=== PATIENT | female | born 1950 | race Caucasian/White ===

== ENCOUNTER 2018-01-22 08:08 | Outpatient (CLI) | payer MEDICARE, OTHER, SELFPAY ==
[2018-01-22 09:43] LABS: Anion Gap 8.4 mmol/L (3-11); BUN 12 mg/dL (7-18); CO2 29.6 mmol/L (21.0-32.0); CREATININE 0.97 mg/dL (0.55-1.02); Calcium 8.5 mg/dL (8.5-10.1); Chloride 105 mmol/L (98-107); Cholesterol 263 mg/dL (50-200); Estimated GFR 57.11 (mL/min/1.73m2); Glucose 85 mg/dL (70-100); HDL Cholesterol 83 mg/dL (40-60); LDL CHOLESTEROL 150 mg/dL (<100); Potassium 4.1 mmol/L (3.5-5.1); Sodium 143 mmol/L (136-145); Triglyceride 167 mg/dL (30-150)
== END 2018-01-22 08:28 ==
PROVIDERS: PCP Family Medicine; Visit Provider Family Medicine
DX: I10 Essential (primary) hypertension (principal)
CPT/HCPCS: 36415; 80048; 80061; 83721

== ENCOUNTER → 2018-02-21 14:15 | Outpatient (BNVA) | payer MEDICARE, OTHER, SELFPAY | PROVIDERS: PCP Family Medicine; Visit Provider Internal Medicine Cardiovascular Disease | DX: I48.0 Paroxysmal atrial fibrillation (principal); I10 Essential (primary) hypertension; Z79.01 Long term (current) use of anticoagulants; Z79.899 Other long term (current) drug therapy; E78.2 Mixed hyperlipidemia | CPT/HCPCS: 99214 ==

== ENCOUNTER 2018-02-21 15:01 | Outpatient (CLI) | payer MEDICARE, OTHER, SELFPAY | END 2018-02-21 15:21 | PROVIDERS: PCP Family Medicine; Visit Provider Internal Medicine Cardiovascular Disease | DX: I10 Essential (primary) hypertension (principal); I48.0 Paroxysmal atrial fibrillation; Z79.01 Long term (current) use of anticoagulants; Z79.899 Other long term (current) drug therapy | CPT/HCPCS: 99214 ==

== ENCOUNTER 2018-06-28 00:16 | Outpatient (CLI) | payer MEDICARE, OTHER, SELFPAY ==
--- NOTE | 2018-06-28 09:02 | DI.MAMMO_ITS ---
SYMPTOM/DIAGNOSIS: SCREENING, Z12.39 MAMMOGRAMS: Mammograms were interpreted according to the usual protocol including computer analysis with CAD system, tomosynthesis and C view imaging. The breasts are heterogeneously dense. Comparison is made with previous examinations including 06/2016 and there has been no gross interval change in appearance in comparison with previous studies. CONCLUSION: No specific evidence of malignancy at this time. Routine screening examinations are suggested at yearly intervals due to the family history of breast carcinoma. Category 1. Breast density, category C. MQSA ASSESSMENT OF FINDINGS: Negative. Category 1. Patient will receive a letter notifying them of these results. Bi-RADS category C. The breasts are heterogeneously dense, which may obscure small masses.
== END 2018-06-28 00:36 ==
PROVIDERS: PCP Family Medicine; Visit Provider Family Medicine
DX: Z12.31 Encounter for screening mammogram for malignant neoplasm of breast (principal); Z80.3 Family history of malignant neoplasm of breast
CPT/HCPCS: 77063; 77067

== ENCOUNTER 2018-07-22 07:23 | Inpatient (IN) | payer MEDICARE, SELFPAY ==
[2018-07-22] VITALS (124 sets, daily range): BP systolic 90–172; BP diastolic 46–89; PULSE 61–135; RESP 9–32; TEMP 37.1–38.6; O2SAT 89–97
--- NOTE | 2018-07-22 07:36 | DI.RAD_ITS ---
SYMPTOM/DIAGNOSIS: CHEST PALPITATIONS PORTABLE AP CHEST: No priors. The heart is normal in size. The lungs are clear. The mediastinal structures and pleura appear intact. CONCLUSION: Normal chest.
--- NOTE | 2018-07-22 07:36 | W.ED.GENAD ---
Discharge Plan Disposition Patient Disposition: STILL A PATIENT Condition: Good Discharge Details Chief Complaint: GenMedical Clinical Impression: Atrial fibrillation with RVR Reason For Visit: ATRIAL FIB Admit Date/Time: 07/22/18 10:02 Admit Provider: Chidi Jcakman Attending Provider: Chidi Jackman Primary Care Provider: Eli Skaggs ED Provider: Elmo Tamez Hospital Course Hospital Course: Mrs. Be is a 67-year-old woman with a history of paroxysmal A. fib with episodes by her estimation of A. fib once every 1 or 2 months, typically lasting hours to perhaps a day. She presented to the emergency room in atrial fibrillation which she recognized when she got up to go to the bathroom at about 2 in the morning. She waited till morning to see if it would go away and it did not. She did not have any associated chest pain diaphoresis dizziness lightheadedness or shortness of breath. Upon arrival in the emergency room she was in A. fib with a ventricular response in the 140-150 range. There was conversation with consulting hooker laster who recommended cardioversion given failure of dronedarone to keep her in sinus rhythm. She had an attempt at synchronized cardioversion which was unsuccessful. She was then placed on a diltiazem drip and admitted. She is chronically anticoagulated with warfarin and presented with an INR in the therapeutic range. She also complained of some nasal congestion clear rhinorrhea for a day or 2 prior to her ER presentation and left facial swelling and some tenderness on the left side of her nose for about 12 hours before presentation. She had obvious swelling and mild redness in the left suborbital area to the bridge of the nose with some mild tenderness. She did not have any imaging of her sinuses. She was empirically started on antibiotics for nasal cellulitis. She was hemodynamically stable with no chest pain, no symptoms of heart failure. She spontaneously converted back to sinus rhythm while on diltiazem at 5 mg/h and remained in sinus rhythm thereafter. Diltiazem was discontinued and she was started on oral metoprolol. Pulse rate at rest was in the 60s and blood pressures 120s-130s over 50s. Her troponins were all below the level of detection. She had no ischemic changes on her ECG. She had continued mild discomfort of her face from the swelling. There was some decrease in swelling and erythema overnight on oral clindamycin. She had a temperature elevation overnight which did not persist. She did not have any purulent nasal discharge. She never had any diplopia or proptosis. She never had any tooth pain. She will need close outpatient follow-up to determine whether or not current antibiotic course is adequate. Pertinent labs: INR 2.5-day of admission and day of discharge. Troponin all below the level of detection. Total cholesterol 263, LDL 150, HDL 83, triglycerides 167. TSH 2.16. White count 12,400 and admission 11,000 on discharge. Medication changes: Amlodipine and Multaq discontinued. Metoprolol started. Discharge Data Discharge Date/Time-TO BE ENTERED AT DEPARTURE: 07/22/18 11:01 Medical Decision Making <Barrett Gunter MD - Last Filed: 07/22/18 22:06> 67 yo female with hx of htn, hld, afib on coumadin, who comes in with palpitations since last night, denies chest pain or dyspnea. She has not missed adose of her dronedarone per pt. She also has noticed swelling around both eyes with out redness or pain and does have mild periorbital swelling left greater than right without warmth or tenderness, normal conjunctiva, eomi without pain. I suspect this is from mild volume overload, there is no findings to suggest periorbital cellulitis at this time. She is noted to be in afib with rvr, will try to control her rate, eval for cardiac ischemic and electrolyte abnormatliies and monitor pt signed out to oncoming provider to reassess and f/u on labs and cxr Differential Diagnosis afib with rvr, anemia, electrolyte abnormality ECG Data Attestation: I personally reviewed and interpreted this ECG (s) as follows: Prior ECG tracings: not available for review Interpretation: atrial fibrillation, rate of 131, qtc 469, nonspecific st depressions <Elmo Tamez MD - Last Filed: 08/01/18 01:03> 8:00 --care signed out to me by Dr. Gunter. Please see his documentation regarding initial ED presentation and course. Plan follow-up on labs and reassess patient Chest x-ray reviewed and interpreted by me: No acute cardiopulmonary pathology noted. Labs reviewed and mild leukocytosis (12K) noted. INR 2.5. Creatinine is mildly elevated at 1.37 (last 0.97 01/22/19). Patient reassessed after diltiazem 15mg IV: HR 95-115. Still in afib. BP stable. No palpitations noted by patient. Unclear etiology for left facial swelling and pain. Quite ttp along lateral left nose and maxilla. No dental pain or tenderness. No sinus congestion. Concern for possible early facial cellulitis. Will start keflex. Plan to consult cardiology. -- I spoke with hospitalist. Plan to admit. HPI <Barrett Gunter MD - Last Filed: 07/22/18 22:06> General Mode of arrival: ambulatory. Date/Time Provider Initiated Documentation: 07/22/18 07:27. Limitations to Documentation: no limitations. Information obtained by: patient. History of Present Illness 67 year old F presents to the emergency department with the chief complaint of palpitations, described as moderate, and is localized to the chest. Patient reports no radiation. Patient started experiencing this day(s) (1) and it has been constant. No relieving factors improve symptom(s), No exacerbating factors reported . Patient notes other (swelling around eyes). Patient did receive the following treatments prior to arrival, none Related Data Home Medications Medication Instructions Recorded Confirmed fluoxetine 20 mg PO DAILY 06/27/14 07/22/18 multivitamin [Multi-Day] 1 tab PO DAILY 06/27/14 07/22/18 losartan 100 mg PO DAILY 07/22/18 07/22/18 warfarin See Rx Instructions .ROUTE .COMPLEX 07/22/18 07/22/18 clindamycin HCl 300 mg PO Q6H #25 cap 07/23/18 metoprolol tartrate 25 mg PO BID #60 tab 07/23/18 Previous Rx's Medication Instructions Recorded clindamycin HCl 300 mg PO Q6H #25 cap 07/23/18 metoprolol tartrate 25 mg PO BID #60 tab 07/23/18 Allergies Allergy/AdvReac Type Severity Reaction Status Date / Time bacitracin Allergy Mild Skin Rash Unverified 07/22/18 08:08 penicillin G AdvReac Mild HEMORRHOIDS Unverified 07/22/18 08:08 SWELL Review of Systems <Barrett Gunter MD - Last Filed: 07/22/18 22:06> Review of Systems All systems reviewed & are unremarkable except as noted in HPI and below ENT Denies change in voice Cardiovascular Denies chest pain and Denies dyspnea Respiratory Denies cough and Denies dyspnea Gastrointestinal Denies abdominal pain, Denies nausea and Denies vomiting Genitourinary Denies dysuria Musculoskeletal Denies joint swelling Integumentary/Breasts Denies rash Psychiatric Denies depression Endocrine Denies cold intolerance and Denies heat intolerance PFSH <Barrett Gunter MD - Last Filed: 07/22/18 22:06> Medical History Depression (Chronic) [facility] current use of antiarrhythmic drug (Chronic) Current use of terminologist anticoagulation (Chronic) Paroxysmal atrial fibrillation (Chronic) Hypertension (Chronic) Social History Smoking/Tobacco Use Status: Former Tobacco Use Alcohol Intake: current Alcohol Intake frequency: holidays/special occasions only Drug use: Never Household members: spouse Housing: house Do you feel safe in your relationship?: Yes Exam <Barrett Gunter MD - Last Filed: 07/22/18 22:06> Const General: no acute distress Orientation: alert HENMT Head: normal to inspection Ears: external ears normal General nose exam: external nose normal Mouth: moist mucous membranes Eyes Pupils: PERRL EOM: EOM intact bilaterally Neck Neck: normal visual inspection Resp Effort & Inspection: normal respiratory effort and able to speak in complete sentences Cardio Rate: regular rate Skin General skin exam: no rashes or lesions noted Neuro General: alert and oriented x3 Extrem General: normal to inspection Psych Mental Status: mental status grossly normal Sign Out <Barrett Gunter MD - Last Filed: 07/22/18 22:06> Sign Out Data: Sign Out Comment: f/u on response to diltiazem and also lab results and imaging and eventual dispo Last updated by Barrett Gunter MD at 07/22/18 07:42
--- NOTE | 2018-07-22 07:39 | ED.GENADUL_ITS ---
Discharge Plan Disposition Patient Disposition: STILL A PATIENT Condition: Good Discharge Details Chief Complaint: GenMedical Clinical Impression: Atrial fibrillation with RVR Reason For Visit: ATRIAL FIB Admit Date/Time: 07/22/18 10:02 Admit Provider: Chidi Jackman Attending Provider: Chidi Jackman Primary Care Provider: Eli Skaggs ED Provider: Elmo Tamez Hospital Course Hospital Course: Mrs. Be is a 67-year-old woman with a history of paroxysmal A. fib with episodes by her estimation of A. fib once every 1 or 2 months, typically lasting hours to perhaps a day. She presented to the emergency room in atrial fibrillation which she recognized when she got up to go to the bathroom at about 2 in the morning. She waited till morning to see if it would go away and it did not. She did not have any associated chest pain diaphoresis dizziness lightheadedness or shortness of breath. Upon arrival in the emergency room she was in A. fib with a ventricular response in the 140-150 range. There was conversation with consulting computer assembler who recommended cardioversion given failure of dronedarone to keep her in sinus rhythm. She had an attempt at synchronized cardioversion which was unsuccessful. She was then placed on a diltiazem drip and admitted. She is chronically anticoagulated with warfarin and presented with an INR in the therapeutic range. She also complained of some nasal congestion clear rhinorrhea for a day or 2 prior to her ER presentation and left facial swelling and some tenderness on the left side of her nose for about 12 hours before presentation. She had obvious swelling and mild redness in the left suborbital area to the bridge of the nose with some mild tenderness. She did not have any imaging of her sinuses. She was empirically started on antibiotics for nasal cellulitis. She was hemodynamically stable with no chest pain, no symptoms of heart failure. She spontaneously converted back to sinus rhythm while on diltiazem at 5 mg/h and remained in sinus rhythm thereafter. Diltiazem was discontinued and she was started on oral metoprolol. Pulse rate at rest was in the 60s and blood pressures 120s-130s over 50s. Her troponins were all below the level of detection. She had no ischemic changes on her ECG. She had continued mild discomfort of her face from the swelling. There was some decrease in swelling and erythema overnight on oral clindamycin. She had a temperature elevation overnight which did not persist. She did not have any purulent nasal discharge. She never had any diplopia or proptosis. She never had any tooth pain. She will need close outpatient follow-up to determine whether or not current antibiotic course is adequate. Pertinent labs: INR 2.5-day of admission and day of discharge. Troponin all below the level of detection. Total cholesterol 263, LDL 150, HDL 83, triglycerides 167. TSH 2.16. White count 12,400 and admission 11,000 on discharge. Medication changes: Amlodipine and Multaq discontinued. Metoprolol started. Discharge Data Discharge Date/Time-TO BE ENTERED AT DEPARTURE: 07/22/18 11:01 Medical Decision Making <Barrett Gunter MD - Last Filed: 07/22/18 22:06> 67 yo female with hx of htn, hld, afib on coumadin, who comes in with palpitations since last night, denies chest pain or dyspnea. She has not missed adose of her dronedarone per pt. She also has noticed swelling around both eyes with out redness or pain and does have mild periorbital swelling left greater than right without warmth or tenderness, normal conjunctiva, eomi without pain. I suspect this is from mild volume overload, there is no findings to suggest periorbital cellulitis at this time. She is noted to be in afib with rvr, will try to control her rate, eval for cardiac ischemic and electrolyte abnormatliies and monitor pt signed out to oncoming provider to reassess and f/u on labs and cxr Differential Diagnosis afib with rvr, anemia, electrolyte abnormality ECG Data Attestation: I personally reviewed and interpreted this ECG (s) as follows: Prior ECG tracings: not available for review Interpretation: atrial fibrillation, rate of 131, qtc 469, nonspecific st depressions <Elmo Tamez MD - Last Filed: 08/01/18 01:03> 8:00 --care signed out to me by Dr. Gunter. Please see his documentation regarding initial ED presentation and course. Plan follow-up on labs and re assess patient Chest x-ray reviewed and interpreted by me: No acute cardiopulmonary pathology noted. Labs reviewed and mild leukocytosis (12K) noted. INR 2.5. Creatinine is mildly elevated at 1.37 (last 0.97 01/22/19). Patient reassessed after diltiazem 15mg IV: HR 95-115. Still in afib. BP stable. No palpitations noted by patient. Unclear etiology for left facial swelling and pain. Quite ttp along lateral left nose and maxilla. No dental pain or tenderness. No sinus congestion. Concern for possible early facial cellulitis. Will start keflex. Plan to consult cardiology. -- I spoke with hospitalist. Plan to admit. HPI <Barrett Gunter MD - Last Filed: 07/22/18 22:06> General Mode of arrival: ambulatory . Date/Time Provider Initiated Documentation: 07/22/18 07:27 . Limitations to Documentation: no limitations . Information obtained by: patient . History of Present Illness 67 year old F presents to the emergency department with the chief complaint of palpitations, described as moderate, and is localized to the chest. Patient reports no radiation. Patient started experiencing this day(s) (1) and it has been constant. No relieving factors improve symptom(s), No exacerbating factors reported . Patient notes other (swelling around eyes). Patient did receive the following treatments prior to arrival, none Related Data Home Medications Medication Instructions Recorded Confirmed fluoxetine 20 mg PO DAILY 06/27/14 07/22/18 multivitamin [Multi-Day] 1 tab PO DAILY 06/27/14 07/22/18 losartan 100 mg PO DAILY 07/22/18 07/22/18 warfarin See Rx Instructions .ROUTE .COMPLEX 07/22/18 07/22/18 clindamycin HCl 300 mg PO Q6H #25 cap 07/23/18 metoprolol tartrate 25 mg PO BID #60 tab 07/23/18 Previous Rx's Medication Instructions Recorded clindamycin HCl 300 mg PO Q6H #25 cap 07/23/18 metoprolol tartrate 25 mg PO BID #60 tab 07/23/18 Allergies Allergy/AdvReac Type Severity Reaction Status Date / Time bacitracin Allergy Mild Skin Rash Unverified 07/22/18 08:08 penicillin G AdvReac Mild HEMORRHOIDS Unverified 07/22/18 08:08 SWELL Review of Systems <Barrett Gunter MD - Last Filed: 07/22/18 22:06> Review of Systems All systems reviewed & are unremarkable except as noted in HPI and below ENT Denies change in voice Cardiovascular Denies chest pain and Denies dyspnea Respiratory Denies cough and Denies dyspnea Gastrointestinal Denies abdominal pain, Denies nausea and Denies vomiting Genitourinary Denies dysuria Musculoskeletal Denies joint swelling Integumentary/Breasts Denies rash Psychiatric Denies depression Endocrine Denies cold intolerance and Denies heat intolerance PFSH <Barrett Gunter MD - Last Filed: 07/22/18 22:06> Medical History Depression (Chronic) custodial current use of antiarrhythmic drug (Chronic) Current use of material yard clerk anticoagulation (Chronic) Paroxysmal atrial fibrillation (Chronic) Hypertension (Chronic) Social History Smoking/Tobacco Use Status: Former Tobacco Use Alcohol Intake: current Alcohol Intake frequency: holidays/special occasions only Drug use: Never Household members: spouse Housing: house Do you feel safe in your relationship?: Yes Exam <Barrett Gunter MD - Last Filed: 07/22/18 22:06> Const General: no acute distress Orientation: alert HENMT Head: normal to inspection Ears: external ears normal General nose exam: external nose normal Mouth: moist mucous membranes Eyes Pupils: PERRL EOM: EOM intact bilaterally Neck Neck: normal visual inspection Resp Effort & Inspection: normal respiratory effort and able to speak in complete sentences Cardio Rate: regular rate Skin General skin exam: no rashes or lesions noted Neuro General: alert and oriented x3 Extrem General: normal to inspection Psych Mental Status: mental status grossly normal Sign Out <Barrett Gunter MD - Last Filed: 07/22/18 22:06> Sign Out Data: Sign Out Comment: f/u on response to diltiazem and also lab results and imaging and eventual dispo Last updated by Barrett Gunter MD at 07/22/18 07:42
[2018-07-22 08:06] LABS: Abs Immature Grans 0.03 k/cumm (0.0-0.09); Absolute Basophil Count 0.05 k/cumm (0.0-0.2); Absolute Eosinophil Count 0.05 k/cumm (0.0-0.7); Absolute Lymphocyte Count 1.58 k/cumm (1.2-3.4); Absolute Neutrophil Count 9.88 k/cumm (1.2-6.7); Basophils % 0.4; Eosinophils % 0.4; HCT 44.9 % (36.0-46.0); HGB 14.8 g/dL (12.0-15.5); Immature Grans % 0.2; Lymphocytes % 12.7; Mean Corpuscular Hemoglobin 29.6 pg (27.0-33.0); Mean Corpuscular Volume 89.8 fL (80-95); Mean Platelet Volume 9.5 fL (8.0-11.0); Monocytes % 6.8; Neutrophils % 79.5; Platelet Count 318 x1000/uL (130-400); RBC Distribution Width 14.2 % (11.7-14.6); White Blood Cell Count 12.43 k/cumm (4.4-10.8)
[2018-07-22 08:07] LABS: Absolute Monocyte Count 0.85 k/cumm (0.11-0.7)
[2018-07-22] MEDS: Normal Saline Flush 10 ML SYR IVP (08:07)
[2018-07-22 08:20] LABS: INR 2.5 (0.9-1.1); PTT Activated 50.7 sec (21.0-31.4); Prothrombin Time 25.1 sec (9.3-11.0)
[2018-07-22 08:30] LABS: TSH (W/Ref FT4) 2.16 uIU/mL (0.358-3.74)
[2018-07-22 08:38] LABS: ALT 35 U/L (12-78); AST 28 U/L (15-37); Albumin 3.3 g/dL (3.4-5.0); Alkaline Phosphatase 118 U/L (46-116); BUN 11 mg/dL (7-18); Bilirubin, Total 0.5 mg/dL (0.2-1.0); CREATININE 1.37 mg/dL (0.55-1.02); Calcium 8.6 mg/dL (8.5-10.1); Chloride 103 mmol/L (98-107); Estimated GFR 38.34 (mL/min/1.73m2); Glucose 195 mg/dL (70-100); Magnesium 1.9 mg/dL (1.8-2.4); NT-proBNP 230 pg/mL; Potassium 3.9 mmol/L (3.5-5.1); Sodium 140 mmol/L (136-145); Total Protein 7.6 g/dL (6.4-8.2); Troponin I < 0.02 ng/mL (0.00-0.06)
--- NOTE | 2018-07-22 09:05 | DI.VRAD_ITS ---
EXAM: XR Chest, 1 View EXAM DATE/TIME: 07/22/2018 8:27 AM CLINICAL HISTORY: 67 years old, female; Signs and symptoms; Other: Chest palpitations TECHNIQUE: XR of the chest, 1 view. COMPARISON: No relevant prior studies available. FINDINGS: Lungs: Minimal atelectasis noted at the left lung base Pleural space: Unremarkable. No pleural effusion. No pneumothorax. Heart/Mediastinum: Unremarkable. No cardiomegaly. Bones/joints: Unremarkable. IMPRESSION: No acute findings Dictated and Authenticated by: Chad Jasso MD. Ordering:TIP Hyde MD
[2018-07-22] MEDS: Cephalexin 500 MG CAP PO (09:15)
[2018-07-22] MEDS: Normal Saline 1,000 ML 30 ML IV (09:30)
[2018-07-22] MEDS: fentaNYL 100 MCG/2 ML VIAL ×3 (09:45→09:52)
--- NOTE | 2018-07-22 12:10 | W.PM.HP.N ---
Date of service: 07/22/18 Time of Service: 12:12 Assessment and Plan (1) Paroxysmal atrial fibrillation: Current visit: Yes Status: Chronic By history it sounds like she has had episodes almost on a monthly basis. This episode atypical and that her heart rate was faster. No other alarming symptoms. Surprising that synchronized cardioversion did not restore sinus rhythm. Not sure if this indicates she is now on permanent rather than paroxysmal A. fib?time will tell. At this point I am focusing on rate control rather than rhythm control. Hold dronedarone in anticipation of cardiology consultation tomorrow to weigh in as to whether or not any other rhythm control strategy should be tried. She is therapeutically anticoagulated. No change in her outpatient warfarin dosing schedule planned at this time but we will monitor her INR. Rate control with IV did ties at a low rate seems to be adequate at this time but may need to titrate dose upward. Possible conversion to oral diltiazem tomorrow, versus beta-hamilton for rate control. I will check 4-hour troponin although she has had no anginal symptoms and if it goes up and may be related to demand ischemia. (2) Hypertension: Current visit: Yes Status: Chronic Outpatient blood pressure control with amlodipine at 7.5 mg and losartan 100 mg daily. Amlodipine on hold while on diltiazem drip. Monitor blood pressure response. Likely will be going home on a different combination of meds for A. fib which may impact blood pressure. (3) Facial cellulitis: Current visit: Yes Status: Acute No history of any trauma, minimal nasal congestion prior. No history of recurrent sinusitis. I will treat as facial erysipelas using clindamycin and monitor clinical response. If worsening may need CT scan of the face. (4) Depression: Current visit: Yes Status: Chronic Stable on outpatient dose of fluoxetine which will continue. History of Present Illness Chief Complaint: Atrial fibrillation recurrence Narrative: Mrs. Indiana Omer is a 67-year-old woman who presented to the emergency room this morning after realizing she was in atrial fibrillation that began about 2:00 in the morning. She gotten up to go to the bathroom and realized she was in atrial fibrillation feeling some fluttering, general sense of weakness but no chest pain diaphoresis nausea presyncope or shortness of breath. She has a history of paroxysmal atrial fibrillation reports that she has episodes about every month that may last hours to as much as a day. This episode she noticed her heart going faster than with her past episodes. She is chronically anticoagulated with a therapeutic INR and is on a rhythm control strategy using dronedarone. There has been conversation with her mold tooler about perhaps changing to dofetilide but no action has been taken in this direction thus far. She currently denies any chest discomfort, trouble breathing, dizziness or lightheadedness. In the emergency room her initial ventricular response was in the 140s. She was hemodynamically stable. After consultation with on-call mold tooler, Dr. Tamez attempted synchronized cardioversion, first with 120 and then with 200 J. This was unsuccessful with no change in her heart rhythm. Subsequently, she was given a diltiazem bolus and started on a diltiazem drip with heart rate staying in the upper 90s to low 100s since. Her initial troponin was low. About 3 days ago developed some mild rhinorrhea and slight nasal congestion. In the past 24-36 hours had noticed tenderness and swelling beneath the left eye and on the bridge of the nose on the left. No skin breaks. No history of allergic rhinitis or recurrent sinusitis. No fever. No epistaxis. The ER physician noted some redness and swelling, thought she may have early facial cellulitis and she received a dose of oral Keflex in the ER. No imaging studies were done of her face. Review of Systems Review of Systems All systems reviewed & are unremarkable except as noted in HPI and below PFSH Medical History Depression (Chronic) [facility] current use of antiarrhythmic drug (Chronic) Current use of senior living anticoagulation (Chronic) Paroxysmal atrial fibrillation (Chronic) Hypertension (Chronic) Social History household members: spouse housing: house Smoking and Tabacco status: Former Tobacco Use alcohol intake: current alcohol intake frequency: holidays/special occasions only Meds Home Medications Medication Instructions Recorded Confirmed Type fluoxetine 20 mg PO DAILY 06/27/14 07/22/18 History multivitamin [Multi-Day] 1 tab PO DAILY 06/27/14 07/22/18 History dronedarone [Multaq] 400 mg PO BID #60 tab-cap 02/12/18 03/10/19 Rx amlodipine 5 mg tablet 5 mg PO DAILY #90 tab 02/21/18 07/22/18 Rx amlodipine 2.5 mg PO DAILY 07/22/18 07/22/18 History losartan 100 mg PO DAILY 07/22/18 07/22/18 History warfarin See Rx Instructions .ROUTE .COMPLEX 07/22/18 07/22/18 History Allergies Allergy/AdvReac Type Severity Reaction Status Date / Time bacitracin Allergy Mild Skin Rash Unverified 07/22/18 08:08 penicillin G AdvReac Mild HEMORRHOIDS Unverified 07/22/18 08:08 SWELL Exam Narrative Exam Narrative: She is in no acute distress sitting up in bed, A. fib on monitor rate in the 90s. There is erythema and swelling beneath the left eye, mild erythema of the upper left eyelid, some induration on the bridge of the nose on the left with mild tenderness. No crepitus and no fluctuance. Pupils are equal and reactive extraocular movements normal with no diplopia on extraocular movement testing. No proptosis. Pharynx clear. No cervical adenopathy or JVD. Lungs are clear in all anderson, no crackles or wheeze. Irregular heart rhythm without S3-S4 or murmur. Abdomen soft nontender no HJR no liver enlargement no masses. Rectal and pelvic exams were not done. Extremities warm with no pitting edema, normal pulses. She has antigravity power present in all extremities. 2+ DTRs at the knees and elbows symmetrically. Sits up unassisted with no ataxia. Oriented x4. Chest x-ray with no infiltrate. EKG A. fib rapid rate nonspecific lateral ST changes. Results Labs : 07/22/18 07:48 07/22/18 07:48 Laboratory Results - last 24 hr 07/22/18 07/22/18 07/22/18 07:48 07:48 07:48 WBC 12.43 H RBC 5.00 Hgb 14.8 Hct 44.9 MCV 89.8 MCH 29.6 MCHC 33.0 RDW 14.2 Plt Count 318 MPV 9.5 Immature Gran % 0.2 Neutrophils % 79.5 Lymphocytes % 12.7 Monocytes % 6.8 Eosinophils % 0.4 Basophils % 0.4 Absolute Neutrophils 9.88 H Absolute Lymphocytes 1.58 Absolute Monocytes 0.85 H Absolute Eosinophils 0.05 Absolute Basophils 0.05 PT 25.1 H INR 2.5 H APTT 50.7 H Sodium 140 Potassium 3.9 Chloride 103 Carbon Dioxide 25.0 Anion Gap 12.0 H BUN 11 Creatinine 1.37 H Estimated GFR/1.73 m2 38.34 Glucose 195 H Calcium 8.6 Magnesium 1.9 Total Bilirubin 0.5 AST 28 ALT 35 Alkaline Phosphatase 118 H Troponin I < 0.02 NT-Pro-B Natriuret Pep 230 Total Protein 7.6 Albumin 3.3 L TSH 07/22/18 07:48 WBC RBC Hgb Hct MCV MCH MCHC RDW Plt Count MPV Immature Gran % Neutrophils % Lymphocytes % Monocytes % Eosinophils % Basophils % Absolute Neutrophils Absolute Lymphocytes Absolute Monocytes Absolute Eosinophils Absolute Basophils PT INR APTT Sodium Potassium Chloride Carbon Dioxide Anion Gap BUN Creatinine Estimated GFR/1.73 m2 Glucose Calcium Magnesium Total Bilirubin AST ALT Alkaline Phosphatase Troponin I NT-Pro-B Natriuret Pep Total Protein Albumin TSH 2.16 Last Vital Signs Temp 37.1 C 07/22/18 10:24 Pulse 78 07/22/18 10:46 Resp 20 07/22/18 10:50 BP 112/70 07/22/18 10:46 Pulse Ox 95 07/22/18 10:58
--- NOTE | 2018-07-22 12:18 | HPE_ITS ---
Date of service: 07/22/18 Time of Service: 12:12 Assessment and Plan (1) Paroxysmal atrial fibrillation: Current visit: Yes Status: Chronic By history it sounds like she has had episodes almost on a monthly basis. This episode atypical and that her heart rate was faster. No other alarming symptoms. Surprising that synchronized cardioversion did not restore sinus rhythm. Not sure if this indicates she is now on permanent rather than paroxysmal A. fib?time will tell. At this point I am focusing on rate control rather than rhythm control. Hold dronedarone in anticipation of cardiology consultation tomorrow to weigh in as to whether or not any other rhythm control strategy should be tried. She is therapeutically anticoagulated. No change in her outpatient warfarin dosing schedule planned at this time but we will monitor her INR. Rate control with IV did ties at a low rate seems to be adequate at this time but may need to titrate dose upward. Possible conversion to oral diltiazem tomorrow, versus beta-hamilton for rate control. I will check 4-hour troponin although she has had no anginal symptoms and if it goes up and may be related to demand ischemia. (2) Hypertension: Current visit: Yes Status: Chronic Outpatient blood pressure control with amlodipine at 7.5 mg and losartan 100 mg daily. Amlodipine on hold while on diltiazem drip. Monitor blood press ure response. Likely will be going home on a different combination of meds for A. fib which may impact blood pressure. (3) Facial cellulitis: Current visit: Yes Status: Acute No history of any trauma, minimal nasal congestion prior. No history of recurrent sinusitis. I will treat as facial erysipelas using clindamycin and monitor clinical response. If worsening may need CT scan of the face. (4) Depression: Current visit: Yes Status: Chronic Stable on outpatient dose of fluoxetine which will continue. History of Present Illness Chief Complaint: Atrial fibrillation recurrence Narrative: Mrs. Indiana Omer is a 67-year-old woman who presented to the emergency room this morning after realizing she was in atrial fibrillation that began about 2:00 in the morning. She gotten up to go to the bathroom and realized she was in atrial fibrillation feeling some fluttering, general sense of weakness but no chest pain diaphoresis nausea presyncope or shortness of breath. She has a history of paroxysmal atrial fibrillation reports that she has episodes about every month that may last hours to as much as a day. This episode she noticed her heart going faster than with her past episodes. She is chronically anticoagulated with a therapeut ic INR and is on a rhythm control strategy using dronedarone. There has been conversation with her veneer production machine operator about perhaps changing to dofetilide but no action has been taken in this direction thus far. She currently denies any chest discomfort, trouble breathing, dizziness or lightheadedness. In the emergency room her initial ventricular response was in the 140s. She was hemodynamically stable. After consultation with on-call veneer production machine operator, Dr. Tamez attempted synchronized cardioversion, first with 120 and then with 200 J. This was unsuccessful with no change in her heart rhythm. Subsequently, she was given a diltiazem bolus and started on a diltiazem drip with heart rate staying in the upper 90s to low 100s since. Her initial troponin was low. About 3 days ago developed some mild rhinorrhea and slight nasal congestion. In the past 24-36 hours had noticed tenderness and swelling beneath the left eye and on the bridge of the nose on the left. No skin breaks. No history of allergic rhinitis or recurrent sinusitis. No fever. No epistaxis. The ER physician noted some redness and swelling, thought she may have early facial cellulitis and she received a dose of oral Keflex in the ER. No imaging studies were done of her face. 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) Current use of long term care pharmacist anticoagulation (Chronic) Paroxysmal atrial fibrillation (Chronic) Hypertension (Chronic) Social History household members: spouse housing: house Smoking and Tabacco status: Former Tobacco Use alcohol intake: current alcohol intake frequency: holidays/special occasions o nly Meds Home Medications Medication Instructions Recorded Confirmed Type fluoxetine 20 mg PO DAILY 06/27/14 07/22/18 History multivitamin [Multi-Day] 1 tab PO DAILY 06/27/14 07/22/18 History dronedarone [Multaq] 400 mg PO BID #60 tab-cap 06/26/17 07/22/18 Rx amlodipine 5 mg tablet 5 mg PO DAILY #90 tab 02/21/18 07/22/18 Rx amlodipine 2.5 mg PO DAILY 07/22/18 07/22/18 History losartan 100 mg PO DAILY 07/22/18 07/22/18 History warfarin See Rx Instructions .ROUTE .COMPLEX 07/22/18 07/22/18 History Allergies Allergy/AdvReac Type Severity Reaction Status Date / Time bacitracin Allergy Mild Skin Rash Unverified 07/22/18 08:08 penicillin G AdvReac Mild HEMORRHOIDS Unverified 07/22/18 08:08 SWELL Exam Narrative Exam Narrative: She is in no acute distress sitting up in bed, A. fib on monitor rate in the 90s. There is erythema and swelling beneath the left eye, mild erythema of the upper left eyelid, some induration on the bridge of the nose on the left with mild tenderness. No crepitus and no fluctuance. Pupils are equal and reactive extraocular movements normal with no diplopia on extraocular movement testing. No proptosis. Pharynx clear. No cervical adenopathy or JVD. Lungs are clear in all anderson, no crackles or wheeze. Irregular heart rhythm without S3-S4 or murmur. Abdomen soft nontender no HJR no liver enlargement no masses. Rectal and pelvic exams were not done. Extremities warm with no pitting edema, normal pulses. She has antigravity power present in all extremities. 2+ DTRs at the knees and elbows symmetrically. Sits up unassisted with no ataxia. Oriented x4. Chest x-ray with no infiltrate. EKG A. fib rapid rate nonspecific lateral ST changes. Results Labs : 07/22/18 07:48 07/22/18 07:48 Laboratory Results - last 24 hr 07/22/18 07/22/18 07/22/18 07:48 07:48 07:48 WBC 12.43 H RBC 5.00 Hgb 14.8 Hct 44.9 MCV 89.8 MCH 29.6 MCHC 33.0 RDW 14.2 Plt Count 318 MPV 9.5 Immature Gran % 0.2 Neutrophils % 79.5 Lymphocytes % 12.7 Monocytes % 6.8 Eosinophils % 0.4 Basophils % 0.4 Absolute Neutrophils 9.88 H Absolute Lymphocytes 1.58 Absolute Monocytes 0.85 H Absolute Eosinophils 0.05 Absolute Basophils 0.05 PT 25.1 H INR 2.5 H APTT 50.7 H Sodium 140 Potassium 3.9 Chloride 103 Carbon Dioxide 25.0 Anion Gap 12.0 H BUN 11 Creatinine 1.37 H Estimated GFR/1.73 m2 38.34 Glucose 195 H Calcium 8.6 Magnesium 1.9 Total Bilirubin 0.5 AST 28 ALT 35 Alkaline Phosphatase 118 H Troponin I < 0.02 NT-Pro-B Natriuret Pep 230 Total Protein 7.6 Albumin 3.3 L TSH 07/22/18 07:48 WBC RBC Hgb Hct MCV MCH MCHC RDW Plt Count MPV Immature Gran % Neutrophils % Lymphocytes % Monocytes % Eosinophils % Basophils % Absolute Neutrophils Absolute Lymphocytes Absolute Monocytes Absolute Eosinophils Absolute Basophils PT INR APTT Sodium Potassium Chloride Carbon Dioxide Anion Gap BUN Creatinine Estimated GFR/1.73 m2 Glucose Calcium Magnesium Total Bilirubin AST ALT Alkaline Phosphatase Troponin I NT-Pro-B Natriuret Pep Total Protein Albumin TSH 2.16 Last Vital Signs Temp 37.1 C 07/22/18 10:24 Pulse 78 07/22/18 10:46 Resp 20 07/22/18 10:50 BP 112/70 07/22/18 10:46 Pulse Ox 95 07/22/18 10:58
[2018-07-22] MEDS: Clindamycin 300 MG CAP PO ×2 (13:55→20:04)
[2018-07-22 16:45] LABS: Troponin I < 0.02 ng/mL (0.00-0.06)
[2018-07-22] MEDS: Metoprolol 25 MG TAB PO (20:03)
[2018-07-22] MEDS: Warfarin 1 MG TAB PO (20:04)
[2018-07-23] VITALS (9 sets, daily range): BP systolic 111–139; BP diastolic 42–65; PULSE 56–67; RESP 10–18; TEMP 37–37.2; O2SAT 92–93
[2018-07-23] MEDS: Clindamycin 300 MG CAP PO ×2 (02:14→08:15)
[2018-07-23 06:51] LABS: HCT 40.8 % (36.0-46.0); HGB 13.2 g/dL (12.0-15.5); Mean Corp. HGB Concentration 32.4 g/dL (32.0-36.0); Mean Corpuscular Hemoglobin 29.3 pg (27.0-33.0); Mean Corpuscular Volume 90.7 fL (80-95); Mean Platelet Volume 9.6 fL (8.0-11.0); Platelet Count 258 x1000/uL (130-400); RBC Distribution Width 14.4 % (11.7-14.6); White Blood Cell Count 11.06 k/cumm (4.4-10.8)
[2018-07-23 06:53] LABS: Anion Gap 7.4 mmol/L (3-11); BUN 14 mg/dL (7-18); CO2 28.6 mmol/L (21.0-32.0); CREATININE 0.93 mg/dL (0.55-1.02); Calcium 8.3 mg/dL (8.5-10.1); Chloride 106 mmol/L (98-107); Estimated GFR 59.95 (mL/min/1.73m2); Glucose 94 mg/dL (70-100); Potassium 4.1 mmol/L (3.5-5.1); Sodium 142 mmol/L (136-145)
[2018-07-23 06:55] LABS: INR 2.5 (0.9-1.1); Prothrombin Time 25.4 sec (9.3-11.0)
[2018-07-23] MEDS: Losartan 50 MG TAB 100 MG PO (08:14)
[2018-07-23] MEDS: Normal Saline Flush 10 ML SYR IVP (08:14)
[2018-07-23] MEDS: Metoprolol 25 MG TAB PO (08:14)
[2018-07-23] MEDS: FLUoxetine 20 MG CAP PO (08:15)
[2018-07-23] MEDS: Multivitamin TAB 1 TAB PO (08:15)
--- NOTE | 2018-07-23 09:42 | PDOC.CMIN ---
Care Management Initial Assess REASON FOR HOSPITALIZATION:: Atrial Fibrilliation PAST MEDICAL HISTORY/PAST SURGICAL HISTORY:: Depression, facial cellulitis, mixed hyperlipidemia, [facility] use of antiarrhythmic drug, intermodal dispatcher anticoagulation, paroxysmal A-fib, hypertension, right ureteral stone, former tobacco use; 1ppd/40yrs quit 2005 PREVIOUS FUNCTIONAL STATUS/SOCIAL/FAMILY SUPPORTS:: Gema resides with her Kenn in [place], [place]. She is indepent with ADLs at baseline. CURRENT FUNCTIONAL STATUS:: Gema is lying in bed, her at her beside. No concerns expressed at this time. ADVANCE DIRECTIVES:: None on file at [facility] Has patient been provided with information about the portal?: Yes Did the patient sign up for the portal?: No CODE STATUS:: Full Code INSURANCE COVERAGE / FINANCIAL ISSUES:: / [place]. Medicare. [employer] CURRENT HOME/COMMUNITY SERVICES/EQUIPMENT:: No current services or equipment. PRIMARY CARE PHYSICIAN:: Chidi Jackman MD. POTENTIAL DISCHARGE NEEDS:: Follow up appointment with PCP. PATIENT/FAMILY EDUCATION NEEDS:: Review of discharge instructions, discuss Ask Me Three. ANTICIPATED BARRIERS TO DISCHARGE:: None identified. TRANSPORTATION:: Via private vehicle with her . PLAN:: Gema will return home when ready per MD. She will follow up with her PCP and plan of care as prescribed. She will transport via private vehicle with her .
--- NOTE | 2018-07-23 10:05 | INITIAL_ITS ---
Care Management Initial Assess REASON FOR HOSPITALIZATION:: Atrial Fibrilliation PAST MEDICAL HISTORY/PAST SURGICAL HISTORY:: Depression, facial cellulitis, mixed hyperlipidemia, retirement use of antiarrhythmic drug, ferry terminal agent anticoagulation, paroxysmal A-fib, hypertension, right ureteral stone, former tobacco use; 1ppd/40yrs quit 2005 PREVIOUS FUNCTIONAL STATUS/SOCIAL/FAMILY SUPPORTS:: Gema resides with her Kenn in [place], [place]. She is indepent with ADLs at baseline. CURRENT FUNCTIONAL STATUS:: Gema is lying in bed, her at her beside. No concerns expressed at this time. ADVANCE DIRECTIVES:: None [facility] at [facility] Has patient been provided with information about the portal?: Yes Did the patient sign up for the portal?: No CODE STATUS:: Full Code INSURANCE COVERAGE / FINANCIAL ISSUES:: / [place]. Medicare. [employer] CURRENT HOME/COMMUNITY SERVICES/EQUIPMENT:: No current services or equipment. PRIMARY CARE PHYSICIAN:: Chidi Jackman MD. POTENTIAL DISCHARGE NEEDS:: Follow up appointment with PCP. PATIENT/FAMILY EDUCATION NEEDS:: Review of discharge instructions, discuss Ask Me Three. ANTICIPATED BARRIERS TO DISCHARGE:: None identified. TRANSPORTATION:: Via private vehicle with her . PLAN:: Gema will return home when ready per MD. She will follow up with her PCP and plan of care as prescribed. She will transport via private vehicle with her .
--- NOTE | 2018-07-23 11:25 | W.PM.DS.N ---
Date of service: 07/23/18 Time of Service: 11:25 DS: Diagnosis Discharge Diagnosis (1) Paroxysmal atrial fibrillation: Status: Chronic Asessment and Plan: Recurrent problem. Converted back to sinus rhythm on diltiazem drip. Started on beta-hamilton with acceptable pulse and blood pressure. No recurrence of A. fib during remainder of time in the hospital. Conversation with christiano Shin for discharge on rate but not rhythm control with cardiology follow-up to discuss options regarding future rhythm control strategies, if any. Therapeutic INR. (2) Hypertension: Status: Chronic Asessment and Plan: Blood pressure well controlled with ARB and beta-hamilton. Amlodipine was discontinued. (3) Facial cellulitis: Status: Acute Asessment and Plan: Slight improvement but not impressive overnight with clindamycin. No systemic symptoms. Outpatient follow-up recommended and if not improving, switch antibiotics from clindamycin to Augmentin. (4) Depression: Status: Chronic Asessment and Plan: Stable on fluoxetine, no changes made. Discharge Plan Disposition Patient Disposition: HOME Condition: Good Discharge Details Chief Complaint: GenMedical Reason For Visit: ATRIAL FIB Admit Date/Time: 07/22/18 10:02 Admit Provider: Chidi Jackman Attending Provider: Chidi Jackman Primary Care Provider: Eli Skaggs ED Provider: Elmo Tamez Hospital Course Hospital Course: Mrs. Be is a 67-year-old woman with a history of paroxysmal A. fib with episodes by her estimation of A. fib once every 1 or 2 months, typically lasting hours to perhaps a day. She presented to the emergency room in atrial fibrillation which she recognized when she got up to go to the bathroom at about 2 in the morning. She waited till morning to see if it would go away and it did not. She did not have any associated chest pain diaphoresis dizziness lightheadedness or shortness of breath. Upon arrival in the emergency room she was in A. fib with a ventricular response in the 140-150 range. There was conversation with consulting sighter who recommended cardioversion given failure of dronedarone to keep her in sinus rhythm. She had an attempt at synchronized cardioversion which was unsuccessful. She was then placed on a diltiazem drip and admitted. She is chronically anticoagulated with warfarin and presented with an INR in the therapeutic range. She also complained of some nasal congestion clear rhinorrhea for a day or 2 prior to her ER presentation and left facial swelling and some tenderness on the left side of her nose for about 12 hours before presentation. She had obvious swelling and mild redness in the left suborbital area to the bridge of the nose with some mild tenderness. She did not have any imaging of her sinuses. She was empirically started on antibiotics for nasal cellulitis. She was hemodynamically stable with no chest pain, no symptoms of heart failure. She spontaneously converted back to sinus rhythm while on diltiazem at 5 mg/h and remained in sinus rhythm thereafter. Diltiazem was discontinued and she was started on oral metoprolol. Pulse rate at rest was in the 60s and blood pressures 120s-130s over 50s. Her troponins were all below the level of detection. She had no ischemic changes on her ECG. She had continued mild discomfort of her face from the swelling. There was some decrease in swelling and erythema overnight on oral clindamycin. She had a temperature elevation overnight which did not persist. She did not have any purulent nasal discharge. She never had any diplopia or proptosis. She never had any tooth pain. She will need close outpatient follow-up to determine whether or not current antibiotic course is adequate. Pertinent labs: INR 2.5-day of admission and day of discharge. Troponin all below the level of detection. Total cholesterol 263, LDL 150, HDL 83, triglycerides 167. TSH 2.16. White count 12,400 and admission 11,000 on discharge. Medication changes: Amlodipine and Multaq discontinued. Metoprolol started. Home Meds and New Rx's Prescriptions: New clindamycin HCl 300 mg Capsule 300 mg PO Q6H Qty: 25 RF: 0 metoprolol tartrate 25 mg Tablet 25 mg PO BID Qty: 60 RF: 0 Continued fluoxetine 20 MG capsule 20 mg PO DAILY RF: 0 multivitamin [Multi-Day] 1 EACH tablet 1 tab PO DAILY RF: 0 warfarin 1 mg Tablet See Rx Instructions .ROUTE .COMPLEX RF: 0 losartan 100 mg Tablet 100 mg PO DAILY RF: 0 Discontinued amlodipine 5 mg tablet 5 mg PO DAILY Qty: 90 RF: 4 Multaq 400 MG tablet 400 mg PO BID Qty: 60 RF: 1 amlodipine 2.5 mg Tablet 2.5 mg PO DAILY RF: 0 Discharge Instructions Instructions: Atrial Fibrillation (DC), Periorbital Cellulitis in Adults (DC) Additional Instructions: Stop taking Multaq and amlodipine. Start taking metoprolol. Continue the antibiotic, clindamycin. Call your doctor if you are having any side effects from the clinamycin such as diarrhea or rash. If you have another episode of atrial fibrillation you can take an additional dose of metoprolol. If your heart is still racing despite this additional dose, return to the emergency room. Keep your appointment [facility] at [facility] and with Dr. Pastor on August 02. Referrals: Claudia Malone [NURSE PRACTITIONER] - 07/24/18 8:45 am Daniela Pastor MD [MD CONSULTING PHYSICIAN] - 08/02/18 10:30 am Activity:: Activity as Tolerated Equipment/Supplies:: No Equipment Needed Diet:: As Tolerated Discharge Orders Discharge Orders: Discharge Order (Routine); Ordered 07/23/18 Ordered By: Chidi Jackman Exam Narrative Exam Narrative: On the morning of discharge she is afebrile and in no distress. There is still moderate swelling beneath the left eye slightly on the left upper eyelid bridge of the nose on the left with mild erythema and warmth, mild tenderness to palpation on the bridge of the nose on the left. She has no drainage from the left nares and is able to breathe although it feels a little bit congested. No cervical adenopathy. Lungs are clear. Regular heart rhythm, no murmur S3 or S4. Normal distal pulses and no peripheral edema. DS: Data Vitals/I&O Vitals and I&O: Vital Signs Temperature 37.2 C 07/23/18 08:05 Temperature Source Temporal Artery Scan 07/23/18 08:05 Pulse 61 07/23/18 08:05 Pulse 59 L 07/23/18 06:01 Respiratory Rate 18 07/23/18 08:05 Respiratory Effort 07/23/18 08:05 Respiratory Depth Normal 07/23/18 08:05 Respiratory Pattern Normal 07/23/18 08:05 Blood Pressure 139/55 L 07/23/18 08:05 Blood Pressure Mean 83 07/23/18 08:05 Blood Pressure Position Supine 07/23/18 03:00 Pulse Oximetry 93 L 07/23/18 08:05 Respiratory End-tidal CO2 29 07/22/18 10:46 Oxygen Delivery Method Room Air 07/23/18 08:05 Oxygen Flow Rate 0 07/23/18 08:05 Pain Level 0 07/23/18 08:05 Intake & Output 07/22/18 07/22/18 07/23/18 11:59 23:59 11:59 Intake Total 780 / 822.333 280 / 280 Output Total 660 / 660 Balance 120 / 162.333 280 / 280 Weight 79.2 kg 76.4 kg Intake: IV Oral 780 / 780 270 / 270 Output: Urine 660 / 660 Other: Urine Color Yellow Urine Appearance Clear Urine Odor None Comment Continent voiding. Voiding Methods Bedside Commode Bedside Commode Labs on day of discharge: Labs from last 24 hours 07/23/18 07/23/18 07/23/18 06:22 06:22 06:22 WBC 11.06 H RBC 4.50 Hgb 13.2 Hct 40.8 MCV 90.7 MCH 29.3 MCHC 32.4 RDW 14.4 Plt Count 258 MPV 9.6 PT 25.4 H INR 2.5 H Sodium 142 Potassium 4.1 Chloride 106 Carbon Dioxide 28.6 Anion Gap 7.4 BUN 14 Creatinine 0.93 Estimated GFR/1.73 m2 59.95 Glucose 94 D Calcium 8.3 L Troponin I 07/22/18 16:00 WBC RBC Hgb Hct MCV MCH MCHC RDW Plt Count MPV PT INR Sodium Potassium Chloride Carbon Dioxide Anion Gap BUN Creatinine Estimated GFR/1.73 m2 Glucose Calcium Troponin I < 0.02 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
--- NOTE | 2018-07-23 11:35 | DSE_ITS ---
Date of service: 07/23/18 Time of Service: 11:25 DS: Diagnosis Discharge Diagnosis (1) Paroxysmal atrial fibrillation: Status: Chronic Asessment and Plan: Recurrent problem. Converted back to sinus rhythm on diltiazem drip. Started on beta-hamilton with acceptable pulse and blood pressure. No recurrence of A. fib during remainder of time in the hospital. Conversation with christiano Shin for discharge on rate but not rhythm control with cardiology follow-up to discuss options regarding future rhythm control strategies, if any. Therapeutic INR. (2) Hypertension: Status: Chronic Asessment and Plan: Blood pressure well controlled with ARB and beta- hamilton. Amlodipine was discontinued. (3) Facial cellulitis: Status: Acute Asessment and Plan: Slight improvement but not impressive overnight with clindamycin. No systemic symptoms. Outpatient follow-up recommended and if not improving, switch antibiotics from clindamycin to Augmentin. (4) Depression: Status: Chronic Asessment and Plan: Stable on fluoxetine, no changes made. Discharge Plan Disposition Patient Disposition: HOME Condition: Good Discharge Details Chief Complaint: GenMedical Reason For Visit: ATRIAL FIB Admit Date/Time: 07/22/18 10:02 Admit Provider: Chidi Jackman Attending Provider: Chidi Jackman Primary Care Provider: Eli Skaggs ED Provider: Elmo Tamez Hospital Course Hospital Course: Mrs. Be is a 67-year-old woman with a history of paroxysmal A. fib with episodes by her estimation of A. fib once every 1 or 2 months, typically lasting hours to perhaps a day. She presented to the emergency room in atrial fibrillation which she recognized when she got up to go to the bathroom at about 2 in the morning. She waited till morning to see if it would go away and it did not. She did not have any associated chest pain diaphoresis dizziness lightheadedness or shortness of breath. Upon arrival in the emergency room she was in A. fib with a ventricular response in the 140-150 range. There was conversation with consulting ese teacher who recommended cardioversion given failure of dronedarone to keep her in sinus rhythm. She had an attempt at synchronized cardioversion which was unsuccessful. She was then placed on a diltiazem drip and admitted. She is chronically anticoagulated with warfarin and presented with an INR in the therapeutic range. She also complained of some nasal congestion clear rhinorrhea for a day or 2 prior to her ER presentation and left facial swelling and some tenderness on the left side of her nose for about 12 hours before presentation. She had obvious swelling and mild redness in the left suborbital area to the bridge of the nose with some mild tenderness. She did not have any imaging of her sinuses. She was empirically started on antibiotics for nasal cellulitis. She was hemodynamically stable with no chest pain, no symptoms of heart failure. She spontaneously converted back to sinus rhythm while on diltiazem at 5 mg/h and remained in sinus rhythm thereafter. Diltiazem was discontinued and she was started on oral metoprolol. Pulse rate at rest was in the 60s and blood pressures 120s-130s over 50s. Her troponins were all below the level of detection. She had no ischemic changes on her ECG. She had continued mild discomfort of her face from the swelling. There was some decrease in swelling and erythema overnight on oral clindamycin. She had a temperature elevation overnight which did not persist. She did not have any purulent nasal discharge. She never had any diplopia or proptosis. She never had any tooth pain. She will need close outpatient follow-up to determine whether or not current antibiotic course is adequate. Pertinent labs: INR 2.5-day of admission and day of discharge. Troponin all below the level of detection. Total cholesterol 263, LDL 150, HDL 83, triglycerides 167. TSH 2.16. White count 12,400 and admission 11,000 on discharge. Medication changes: Amlodipine and Multaq discontinued. Metoprolol started. Home Meds and New Rx's Prescriptions: New clindamycin HCl 300 mg Capsule 300 mg PO Q6H Qty: 25 RF: 0 metoprolol tartrate 25 mg Tablet 25 mg PO BID Qty: 60 RF: 0 Continued fluoxetine 20 MG capsule 20 mg PO DAILY RF: 0 multivitamin [Multi-Day] 1 EACH tablet 1 tab PO DAILY RF: 0 warfarin 1 mg Tablet See Rx Instructions .ROUTE .COMPLEX RF: 0 losartan 100 mg Tablet 100 mg PO DAILY RF: 0 Discontinued amlodipine 5 mg tablet 5 mg PO DAILY Qty: 90 RF: 4 Multaq 400 MG tablet 400 mg PO BID Qty: 60 RF: 1 amlodipine 2.5 mg Tablet 2.5 mg PO DAILY RF: 0 Discharge Instructions Instructions: Atrial Fibrillation (DC), Periorbital Cellulitis in Adults (DC) Additional Instructions: Stop taking Multaq and amlodipine. Start taking metoprolol. Continue the antibiotic, clindamycin. Call your doctor if you are having any side effects from the clinamycin such as diarrhea or rash. If you have another episode of atrial fibrillation you can take an additional dose of metoprolol. If your heart is still racing despite this additional dose, return to the emergency ro om. Keep your appointment tomorrow at [facility] and with Dr. Pastor on August 02. Referrals: Claudia Malone [NURSE PRACTITIONER] - 07/24/18 8:45 am Daniela Pastor MD [MD CONSULTING PHYSICIAN] - 08/02/18 10:30 am Activity:: Activity as Tolerated Equipment/Supplies:: No Equipment Needed Diet:: As Tolerated Discharge Orders Discharge Orders: Discharge Order (Routine); Ordered 07/23/18 Ordered By: Chidi Jackman Exam Narrative Exam Narrative: On the morning of discharge she is afebrile and in no distress. There is still moderate swelling beneath the left eye slightly on the left upper eyelid bridge of the nose on the left with mild erythema and warmth, mild tenderness to palpation on the bridge of the nose on the left. She has no drainage from the left nares and is able to breathe although it feels a little bit congested. No cervical adenopathy. Lungs are clear. Regular heart rhythm, no murmur S3 or S4. Normal distal pulses and no peripheral edema. DS: Data Vitals/I&O Vitals and I&O: Vital Signs Temperature 37.2 C 07/23/18 08:05 Temperature Source Temporal Artery Scan 07/23/18 08:05 Pulse 61 07/23/18 08:05 Pulse 59 L 07/23/18 06:01 Respiratory Rate 18 07/23/18 08:05 Respiratory Effort 07/23/18 08:05 Respiratory Depth Normal 07/23/18 08:05 Respiratory Pattern Normal 07/23/18 08:05 Blood Pressure 139/55 L 07/23/18 08:05 Blood Pressure Mean 83 07/23/18 08:05 Blood Pressure Position Supine 07/23/18 03:00 Pulse Oximetry 93 L 07/23/18 08:05 Respiratory End-tidal CO2 29 07/22/18 10:46 Oxygen Delivery Method Room Air 07/23/18 08:05 Oxygen Flow Rate 0 07/23/18 08:05 Pain Level 0 07/23/18 08:05 Intake & Output 07/22/18 07/22/18 07/23/18 11:59 23:59 11:59 Intake Total 780 / 822.333 280 / 280 Output Total 660 / 660 Balance 120 / 162.333 280 / 280 Weight 79.2 kg 76.4 kg Intake: IV Oral 780 / 780 270 / 270 Output: Urine 660 / 660 Other: Urine Color Yellow Urine Appearance Clear Urine Odor None Comment Continent voiding. Voiding Methods Bedside Commode Bedside Commode Labs on day of discharge: Labs from last 24 hours 07/23/18 07/23/18 07/23/18 06:22 06:22 06:22 WBC 11.06 H RBC 4.50 Hgb 13.2 Hct 40.8 MCV 90.7 MCH 29.3 MCHC 32.4 RDW 14.4 Plt Count 258 MPV 9.6 PT 25.4 H INR 2.5 H Sodium 142 Potassium 4.1 Chloride 106 Carbon Dioxide 28.6 Anion Gap 7.4 BUN 14 Creatinine 0.93 Estimated GFR/1.73 m2 59.95 Glucose 94 D Calcium 8.3 L Troponin I 07/22/18 16:00 WBC RBC Hgb Hct MCV MCH MCHC RDW Plt Count MPV PT INR Sodium Potassium Chloride Carbon Dioxide Anion Gap BUN Creatinine Estimated GFR/1.73 m2 Glucose Calcium Troponin I < 0.02 [facility] 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
--- NOTE | 2018-07-23 16:23 | PDOC.CMDIS ---
LACE Index Scoring Tool - Questions: Length of Stay (in days): 2 Acuity (Admit via E.D.?): Yes E.D. Visits: 1 - Answers: Total Score: 6 Risk of Readmission: Low Risk Care Management Discharge Reason for Hospitalization: Atrial Fibrilliation Discharge Plan: Gema will return home when ready per MD. She will follow up with her PCP and plan of care as prescribed. She will transport via private vehicle with her . Patient/Family Education Needs: Review discharge instructions, discuss Ask Me Three.
== END 2018-07-23 12:05 | disposition home or self-care (01) | DRG 310 ==
LOC: ER 10:52 → ICU 11:03
PROVIDERS: Emergency Medicine; Admitting Provider Internal Medicine; Emergency Provider Student in an Organized Health Care Education/Training Program; PCP Family Medicine; Visit Provider Internal Medicine
DX: I48.0 Paroxysmal atrial fibrillation (principal); I10 Essential (primary) hypertension; J34.0 Abscess, furuncle and carbuncle of nose; Z79.01 Long term (current) use of anticoagulants
CPT/HCPCS: 36415; 80048; 80053; 85027; 93005; 96365; 96375; 99223; 99239; 99285; 71045; 83735; 83880; 84443; 84484; 85025; 85610; 85730; 93010; J3010; J3490

== ENCOUNTER → 2018-07-23 08:06 | Outpatient (BNVA) | payer MEDICARE, SELFPAY | PROVIDERS: PCP Family Medicine; Visit Provider Internal Medicine Interventional Cardiology | DX: R69 Illness, unspecified (principal) ==

== ENCOUNTER → 2018-08-02 10:11 | Outpatient (BNVA) | payer MEDICARE, SELFPAY | PROVIDERS: PCP Family Medicine; Visit Provider Internal Medicine Cardiovascular Disease | DX: I48.0 Paroxysmal atrial fibrillation (principal); I10 Essential (primary) hypertension; E78.2 Mixed hyperlipidemia; Z79.01 Long term (current) use of anticoagulants | CPT/HCPCS: 99214 ==

== ENCOUNTER → 2018-09-20 09:19 | Outpatient (BNVA) | payer MEDICARE, OTHER, SELFPAY | PROVIDERS: PCP Family Medicine; Visit Provider Internal Medicine Cardiovascular Disease | DX: E78.2 Mixed hyperlipidemia (principal); Z79.01 Long term (current) use of anticoagulants; I10 Essential (primary) hypertension; I48.0 Paroxysmal atrial fibrillation | CPT/HCPCS: 99214 ==

== ENCOUNTER 2019-01-10 13:48 | Outpatient (REF) | payer MEDICARE, OTHER, SELFPAY ==
[2019-01-10 15:14] LABS: Anion Gap 14.6 mmol/L (3-11); BUN 13 mg/dL (7-18); CO2 23.4 mmol/L (21.0-32.0); CREATININE 1.08 mg/dL (0.55-1.02); Calcium 8.4 mg/dL (8.5-10.1); Chloride 106 mmol/L (98-107); Glucose 148 mg/dL (70-100); Potassium 3.8 mmol/L (3.5-5.1); Sodium 144 mmol/L (136-145)
== END 2019-01-10 14:08 ==
LOC: NCHCN 13:48
PROVIDERS: PCP Family Medicine; Visit Provider Family Medicine
DX: I10 Essential (primary) hypertension (principal)
CPT/HCPCS: 80048

== ENCOUNTER → 2019-04-02 13:07 | Outpatient (BNVA) | payer MEDICARE, OTHER, SELFPAY | PROVIDERS: PCP Family Medicine; Referring Provider Family Medicine; Visit Provider Internal Medicine Cardiovascular Disease | DX: I48.0 Paroxysmal atrial fibrillation (principal); I10 Essential (primary) hypertension; Z79.01 Long term (current) use of anticoagulants | CPT/HCPCS: 99204; 99215 ==

== ENCOUNTER 2019-06-15 09:45 | Emergency (ER) | payer MEDICARE, OTHER, SELFPAY ==
--- NOTE | 2019-06-15 09:55 | ED.FU.B_ITS ---
Patient was instructed to come into the department for Tamiflu prescription. I did evaluate her last night and after my departure, it was deemed that he was influenza positive. Patient is upset about having to check in for prescription. As it is standard of care to treat people with Tamiflu with known exposure, particularly in her age range, I do not feel that charges should be applied to this patient. He should have been a service that was provided to her last night by myself prior to my departure. Patient has no symptoms. No chest pain, shortness of breath. Reports history of paroxysmal atrial fibrillation, is not currently having any symptoms. We discussed the possible side effects associate with Tamiflu. Will call in the prescription to [facility] in [facility]. I ask that this patient not be billed for this visit.
== END 2019-06-15 10:00 ==
PROVIDERS: Emergency Provider Physician Assistant; PCP Family Medicine
DX: J11.1 Influenza due to unidentified influenza virus with other respiratory manifestations (principal); Z76.0 Encounter for issue of repeat prescription

== ENCOUNTER 2019-07-09 11:14 | Outpatient (REF) | payer MEDICARE, OTHER, SELFPAY ==
[2019-07-09 13:34] LABS: Anion Gap 8.7 mmol/L (3-11); BUN 14 mg/dL (7-18); CO2 29.3 mmol/L (21.0-32.0); CREATININE 0.81 mg/dL (0.55-1.02); Calcium 8.8 mg/dL (8.5-10.1); Chloride 106 mmol/L (98-107); Glucose 85 mg/dL (74-106); Potassium 4.2 mmol/L (3.5-5.1); Sodium 144 mmol/L (136-145)
== END 2019-07-09 11:34 ==
LOC: NCHCN 11:14
PROVIDERS: PCP Family Medicine; Visit Provider Family Medicine
DX: I10 Essential (primary) hypertension (principal)
CPT/HCPCS: 80048

== ENCOUNTER → 2019-10-01 10:23 | Outpatient (BNVA) | payer MEDICARE, OTHER, SELFPAY | PROVIDERS: PCP Family Medicine; Referring Provider Family Medicine; Visit Provider Internal Medicine Cardiovascular Disease | DX: Z79.01 Long term (current) use of anticoagulants (principal); I48.0 Paroxysmal atrial fibrillation; I10 Essential (primary) hypertension | CPT/HCPCS: 99442; 99213 ==

== ENCOUNTER 2020-05-11 10:40 | Outpatient (REF) | payer MEDICARE, OTHER, SELFPAY ==
--- NOTE | 2020-05-11 10:40 | SKI_PTH ---
PATIENT: Gema Grace LOC: [facility] U#:[id number] AGE/SX: 69/F ROOM: RE05/11/[address]: GORAN Jackson : 1950 BED: DIS: 05/11/2020 SPEC #: [id number] RECD: 05/12/20 12:43 STATUS: ARNEL REQ #: [id number] LORETTA: 05/11/20 10:[address]: Jono Munoz DEPT: Surgical Specimen RECD BY: Florence Mckinney ENTERED: 05/12/20 12:43 SP TYPE: SYDNIE TORRES DR: Eli Skaggs Tissues: 1 - SKIN BIOPSY(SHAVE/PUNCH) Procedures: SKIN LEVEL 4 Comments: [id number] (PREVIOUSLY [id number])
== END 2020-05-11 11:00 ==
LOC: LBN 10:40
PROVIDERS: PCP Family Medicine; Visit Provider Physician Assistant
DX: B07.8 Other viral warts (principal); L98.8 Other specified disorders of the skin and subcutaneous tissue
CPT/HCPCS: 88305

== ENCOUNTER 2020-05-28 01:51 | Outpatient (CLI) | payer MEDICARE, OTHER, SELFPAY ==
--- NOTE | 2020-05-28 | DI.MAMMO_ITS ---
EXAM: MAMMO SCREENING CLINICAL HISTORY: SCREENING, Z12.39 TECHNIQUE: Mammograms were interpreted according to the usual protocol including computer analysis w [employer] CAD system, tomosynthesis and C-view imaging. COMPARISON: FINDINGS: The breasts are of moderate density with fairly symmetrical distribution of fibroglandular tissue. N o dominant mass or clumped microcalcification is identified in either breast. The current examinatio n is compared with previous examinations including June 2018 and there is question of increased p rominence of a vaguely nodular area of asymmetric density projected in the lateral portion of the lef t breast on CC view. Additional mammographic views of this area are requested to include CC spot com pression view. No other significant change from prior studies. IMPRESSION: Additional mammographic views of the left breast requested as described above. Breast ultrasound may be indicated as well depending on the results of the additional mammographic views . BI-RADS Cat 0 - Assessment Incomplete: Need additional imaging evaluation Breast Density - Category B - Scattered areas of fibroglandular density
== END 2020-05-28 02:11 ==
PROVIDERS: PCP Family Medicine; Visit Provider Family Medicine
DX: Z12.31 Encounter for screening mammogram for malignant neoplasm of breast (principal)
CPT/HCPCS: 77063; 77067

== ENCOUNTER 2020-06-05 03:39 | Outpatient (CLI) | payer MEDICARE, OTHER, SELFPAY ==
--- NOTE | 2020-06-05 | DI.US_ITS ---
EXAM: MG MAMMO SCREEN CALL BACK UNI and U/S breast LT limited CLINICAL HISTORY: F/U MAMMO,?INCREASED PROMINENCE ASYMMETRIC DENSITY. TECHNIQUE: Craniocaudal and mediolateral oblique Full Field Digital Mammography views of the left br east with Computer Aided Diagnosis followed by Tomosynthesis and left breast ultrasound. COMPARISON: Priors available for comparison. FINDINGS: Mammography/Tomosynthesis: Masses/Architectural Distortion: Upon spot compression, no mass persists. Microcalcifictions: No suspicious pleomorphic-type are seen. Skin Thickening/Nipple Retraction: None. Left breast US: Echotexture: Normal appearance of the glandular tissue. Shadowing: No suspicious foci. Cyst: None. Solid lesions: Upon cine evaluation, the area is isoechoic to the surrounding fibroglandular tissue w ithout suspicious posterior acoustic enhancement or shadowing. Ductal dilation: None. IMPRESSION: 1. No definite evidence of malignancy is noted. 2. A 3 month follow-up mammogram and ultrasound are requested for re-evaluation. 3. The findings were discussed with the patient on the date of the examination. BI-RADS Category 3 - Probably Benign Finding: Recommend follow-up mammography in 3 months Breast Density - Category B - Scattered areas of fibroglandular density Breast density Category C or D implies that the patient has dense breast tissue. Dense breast tissue can make it harder to find cancer on a mammogram. Dense breast tissue is also associated with an incr eased risk of breast cancer. This information about the result of the mammogram report was provided to the patient to raise their awareness. Use this report when you speak with the patient about their risks for breast cancer, which includes their family history. At that time, you may recommend additional screening tests (Ultrasoun d or MRI) as these tests may add significant information. A negative radiographic report should not delay biopsy if a dominant or clinically suspicious mass is present. Up to ten percent of cancers are not identified on mammography. A negative report may reinforce clinical impression. Adenosis and dense breasts may obscure an underlying neoplasm. False positive reports average 6 to 10%. Patient will receive a letter notifying them of these results.
== END 2020-06-05 03:59 ==
PROVIDERS: PCP Family Medicine; Visit Provider Family Medicine
DX: R92.8 Other abnormal and inconclusive findings on diagnostic imaging of breast (principal)
CPT/HCPCS: 76642; 77063; 77067

== ENCOUNTER → 2020-07-21 13:53 | Outpatient (BNVA) | payer MEDICARE, OTHER, SELFPAY | PROVIDERS: PCP Family Medicine; Referring Provider Family Medicine; Visit Provider Internal Medicine Cardiovascular Disease | DX: I48.0 Paroxysmal atrial fibrillation (principal); Z79.01 Long term (current) use of anticoagulants; I10 Essential (primary) hypertension | CPT/HCPCS: 99214; 99213 ==

== ENCOUNTER 2020-07-27 09:15 | Outpatient (REF) | payer MEDICARE, OTHER, SELFPAY ==
[2020-07-27 15:59] LABS: HCT 47.8 % (36.0-46.0); MCH 28.8 pg (27.0-33.0); MCHC 31.4 % (32.0-36.0); MCV 91.9 fL (80-95); Platelet Count 299 10^3/uL (130-400); WBC 6.64 10^3/uL (4.4-10.8)
[2020-07-27 16:05] LABS: Anion Gap 10.2 mmol/L (3-11); BUN 14 mg/dL (7-18); CO2 27.8 mmol/L (21.0-32.0); CREATININE 0.8 mg/dL (0.55-1.02); Calcium 9.1 mg/dL (8.5-10.1); Chloride 106 mmol/L (98-107); Glucose 87 mg/dL (74-106); Sodium 144 mmol/L (136-145)
== END 2020-07-27 09:16 | disposition home or self-care (01) ==
LOC: NCHCN 09:15
PROVIDERS: PCP Family Medicine; Visit Provider Family Medicine
DX: I10 Essential (primary) hypertension (principal)
CPT/HCPCS: 80048; 85027

== ENCOUNTER 2020-09-01 01:45 | Outpatient (CLI) | payer MEDICARE, OTHER, SELFPAY ==
--- NOTE | 2020-09-01 | DI.US_ITS ---
EXAM: MG MAMMO DIAGNOSTIC UNI CLINICAL HISTORY: DIAGNOSTIC, F/U ABNL MAMMO, R92.8 TECHNIQUE: Mammograms were interpreted according to the usual protocol including computer analysis w [employer] (powering [employer]) CAD system, tomosynthesis and C-view imaging. COMPARISON: FINDINGS: Left breast mammogram with additional mammographic views of the left breast and left breast ultrasoun d are interpreted in conjunction. Examination is compared with prior study of May 2020. The are a of questionable nodular radiodensity of the of upper outer quadrant of the left breast is less prom inent. No mass or clumped microcalcification is seen. Ultrasound a graphically, there is no evidenc e of a mass or cyst in the upper outer quadrant of the left breast. IMPRESSION: No specific evidence of malignancy at this time. I would suggest that routine screening examinations resume with a bilateral mammogram in May of 2021. BI-RADS Category 1 - Negative Breast Density - Category B - Scattered areas of fibroglandular density
== END 2020-09-01 02:05 ==
PROVIDERS: PCP Family Medicine; Visit Provider Family Medicine
DX: Z12.31 Encounter for screening mammogram for malignant neoplasm of breast (principal); R92.8 Other abnormal and inconclusive findings on diagnostic imaging of breast; N64.59 Other signs and symptoms in breast
CPT/HCPCS: 76642; 77061; 77065; G0279

== ENCOUNTER → 2021-01-25 09:46 | Outpatient (BNVA) | payer MEDICARE, SELFPAY | PROVIDERS: PCP Family Medicine; Referring Provider Family Medicine; Visit Provider Internal Medicine Cardiovascular Disease | DX: I10 Essential (primary) hypertension (principal); I48.0 Paroxysmal atrial fibrillation; Z79.01 Long term (current) use of anticoagulants | CPT/HCPCS: 99213 ==

== ENCOUNTER 2021-04-14 00:40 | Outpatient (CLI) | payer MEDICARE, SELFPAY ==
--- NOTE | 2021-04-14 16:30 | DI.DEXA_ITS ---
Exam(s) XR DEXA BONE DENSITY W/WO BHAVANA EXAM: XR DEXA BONE DENSITY W/WO BHAVANA CLINICAL HISTORY: POST MENOPAUSAL Z78.0 TECHNIQUE: Routine DEXA evaluation of the lumbar spine, hip, or forearm. COMPARISON: Prior DEXA scan performed June 2015 FINDINGS: Performed on a HoloTimePad unit. Lateral image: No compression fracture evident. Lumbar Spine total T-score: 0.8. Prior reading in 2016 was 1.8 Hip total T-score:-0.5. Prior reading in 2016 was 0.3. Independent reading at the level of the femoral neck yields at T-score of -1.0. Forearm total T-score: -1.3 IMPRESSION: Bone mineral density measures in the normal-mild osteopenia range. Fracture risk is low-moderate. Note: Any spine fracture indicates 5x risk for subsequent spine fracture and 2x risk for subsequent h ip fracture. World Health Organization criteria for BMD interpretation classify patients: Normal...... T- Score at or above -1.0 Osteopenic... T- Score between -1.0 and -2.5 Osteoporosis... T-Score at or below -2.5
== END 2021-04-14 01:00 ==
PROVIDERS: PCP Family Medicine; Visit Provider Family Medicine
DX: Z78.0 Asymptomatic menopausal state (principal); Z13.820 Encounter for screening for osteoporosis; M85.88 Other specified disorders of bone density and structure, other site
CPT/HCPCS: 77080

== ENCOUNTER 2021-06-03 01:29 | Outpatient (CLI) | payer MEDICARE, SELFPAY ==
--- NOTE | 2021-06-03 11:35 | DI.MAMMO_ITS ---
Exam(s) MAMMO SCREENING EXAM: MAMMO SCREENING CLINICAL HISTORY: SCREENING, Z12.39. TECHNIQUE: Bilateral full field digital CC and MLO mammographic images were obtained with 3D tomosyn thesis and utilizing computer aided detection (CAD). COMPARISON: Prior mammograms were reviewed, the most recent being . FINDINGS: There are no new spiculated masses nor malignant appearing microcalcification groups. There is no significant architectural distortion nor skin thickening-retraction. IMPRESSION: No radiographic evidence of malignancy. BI-RADS Category 1 - Negative Breast Density - Category B - Scattered areas of fibroglandular density Breast density Category C or D implies that the patient has dense breast tissue. Dense breast tissue can make it harder to find cancer on a mammogram. Dense breast tissue is also associated with an incr eased risk of breast cancer. This information about the result of the mammogram report was provided to the patient to raise their awareness. Use this report when you speak with the patient about their risks for breast cancer, which includes their family history. At that time, you may recommend additional screening tests (Ultrasoun d or MRI) as these tests may add significant information. A negative radiographic report should not delay biopsy if a dominant or clinically suspicious mass is present. Up to ten percent of cancers are not identified on mammography. A negative report may reinforce clinical impression. Adenosis and dense breasts may obscure an underlying neoplasm. False positive reports average 6 to 10%. Patient will receive a letter notifying them of these results.
== END 2021-06-03 01:49 ==
PROVIDERS: PCP Family Medicine; Visit Provider Family Medicine
DX: Z12.31 Encounter for screening mammogram for malignant neoplasm of breast (principal)
CPT/HCPCS: 77063; 77067

== ENCOUNTER → 2021-07-23 09:47 | Outpatient (BNVA) | payer MEDICARE, SELFPAY | PROVIDERS: PCP Family Medicine; Visit Provider Internal Medicine Cardiovascular Disease | DX: Z79.01 Long term (current) use of anticoagulants (principal); I48.0 Paroxysmal atrial fibrillation; I10 Essential (primary) hypertension | CPT/HCPCS: 99214; 99213 ==

== ENCOUNTER 2021-08-09 17:06 | Outpatient (REF) | payer MEDICARE, SELFPAY ==
[2021-08-09 20:09] LABS: ESR 20 mm/hr (0-30)
[2021-08-09 20:24] LABS: Anion Gap 9.2 mmol/L (3-11); BUN 25 mg/dL (7-18); C-Reactive Protein 0.51 mg/dL (0.0-0.3); CO2 27.8 mmol/L (21.0-32.0); CREATININE 0.9 mg/dL (0.55-1.02); Calcium 9.2 mg/dL (8.5-10.1); Chloride 105 mmol/L (98-107); Creatine Kinase 78 U/L (26-192); Glucose 107 mg/dL (74-106); Magnesium 2.2 mg/dL (1.8-2.4); Potassium 3.7 mmol/L (3.5-5.1); Sodium 142 mmol/L (136-145)
[2021-08-09 20:45] LABS: Vitamin D 25 Total 45.3 ng/mL (30-100)
== END 2021-08-09 17:07 | disposition home or self-care (01) ==
LOC: NCHCN 17:06
PROVIDERS: PCP Family Medicine; Visit Provider Family Medicine
DX: I48.0 Paroxysmal atrial fibrillation (principal); I10 Essential (primary) hypertension; M79.10 Myalgia, unspecified site
CPT/HCPCS: 80048; 82306; 82550; 85652; 83735; 86140

== ENCOUNTER → 2022-02-04 09:08 | Outpatient (BNVA) | payer MEDICARE, SELFPAY | PROVIDERS: PCP Family Medicine; Visit Provider Internal Medicine Cardiovascular Disease | DX: I48.0 Paroxysmal atrial fibrillation (principal); I10 Essential (primary) hypertension; E78.5 Hyperlipidemia, unspecified; Z79.01 Long term (current) use of anticoagulants | CPT/HCPCS: 93005; 99214 ==

== ENCOUNTER 2022-02-04 09:22 | Outpatient (CLI) | payer MEDICARE, SELFPAY ==
--- NOTE | 2022-02-04 09:15 | RT.EKG_ITS ---
APPROVED REPORT Exam: Resting ECG Reason for Exam: a fib Patient Location: O HR:56 bpm ECG Measurements Heart Rate 56 AXIS PA 190 P 71 QRSd 89 QRS 22 QT 452 T 52 QTc 437 Conclusion Sinus rhythm...normal P axis, V-rate 50- 99 Probable left atrial enlargement...P >50mS, <-0.10mV V1 Normal Electrocardiogram
== END 2022-02-04 09:23 | disposition home or self-care (01) ==
LOC: DI.CARD 09:23
PROVIDERS: PCP Family Medicine; Visit Provider Internal Medicine Cardiovascular Disease
DX: I48.0 Paroxysmal atrial fibrillation (principal)
CPT/HCPCS: 93010

== ENCOUNTER 2022-04-26 12:17 | Emergency (ER) | payer MEDICARE, SELFPAY ==
[2022-04-26 12:21] VITALS: BP 148/61; PULSE 70; RESP 16; TEMP 36.7; O2SAT 98
--- NOTE | 2022-04-26 12:30 | RT.EKG_ITS ---
APPROVED REPORT Exam: Resting ECG Reason for Exam: htn, afib Patient Location: E HR:62 bpm ECG Measurements Heart Rate 62 AXIS ME 186 P 78 QRSd 86 QRS 25 QT 435 T 49 QTc 442 Conclusion Sinus rhythm...normal P axis, V-rate 60- 99
--- NOTE | 2022-04-26 12:44 | DI.RAD_ITS ---
Exam(s) XR CHEST 1V IN DI DEPT EXAM: XR CHEST 1V IN DI DEPT CLINICAL HISTORY: htn, facial numbness, afib TECHNIQUE: 2D digital imaging was performed of the chest. One image was obtained. An AP view was ob tained. COMPARISON: No exams were available for comparison FINDINGS: MEDIASTINUM: Normal. HEART: Normal. PULMONARY VASCULATURE: Normal. LUNGS: Clear. PLEURAL SPACE: No pleural effusion or pneumothorax. BONE:Within normal limits for the patient's age. OTHER FINDINGS:Normal. IMPRESSION: No acute pulmonary findings. DATA REPOSITORY: RADIATION DOSE DELIVERED:
[2022-04-26] MEDS: Acetaminophen 325 MG TAB 650 MG PO (13:01)
[2022-04-26 13:25] LABS: Abs Immature Grans 0.02 10^3/uL (0.0-0.06); Absolute Basophil Count 0.08 10^3/uL (0.0-0.2); Absolute Eosinophil Count 0.16 10^3/uL (0.0-0.7); Absolute Lymphocyte Count 1.72 10^3/uL (1.2-3.4); Absolute Monocyte Count 0.49 10^3/uL (0.1-0.8); Absolute Neutrophil Count 3.23 10^3/uL (1.2-6.7); Basophils % 1.4; Eosinophils % 2.8; HCT 44.6 % (36.0-46.0); HGB 14.5 g/dL (11.2-15.7); Immature Grans % 0.4; Lymphocytes % 30.2; MCH 29.5 pg (27.0-33.0); MCHC 32.5 % (32.0-36.0); MCV 91 fL (80-95); MPV 9.6 fL (8.0-11.0); Monocytes % 8.6; Neutrophils % 56.6; Platelet Count 270 10^3/uL (130-400); RBC 4.91 10^6/uL (3.93-5.22); RDW 13.2 % (11.7-14.6); RDW-SD 44.4 fL
[2022-04-26 13:42] LABS: ALT 24 U/L (14-59); AST 22 U/L (15-37); Albumin 3.7 g/dL (3.4-5.0); Alkaline Phosphatase 119 U/L (46-116); BUN 21 mg/dL (7-18); Bilirubin, Total 0.3 mg/dL (0.2-1.0); Calcium 8.9 mg/dL (8.5-10.1); Chloride 103 mmol/L (98-107); Estimated GFR 59.86 (mL/min/1.73m2); Glucose 100 mg/dL (74-106); Potassium 3.4 mmol/L (3.5-5.1); Sodium 140 mmol/L (136-145); Total Protein 7.5 g/dL (6.4-8.2); Troponin I < 50 ng/L (<or=60)
--- NOTE | 2022-04-26 13:45 | DI.MRI_ITS ---
Exam(s) MR BRAIN WO EXAM: MR BRAIN WO CLINICAL HISTORY: facial numbness, tongue numbness, hx of afib, htn TECHNIQUE: Multiplanar multisequence MRI of the brain was performed. COMPARISON: No exams were available for comparison FINDINGS: VENTRICLES AND EXTRA AXIAL SPACES: Normal in size and morphology for the patient's age. MIDLINE SHIFT: None. CEREBRAL PARENCHYMA: No focus of restricted diffusion to suggest acute infarct. No space-occupying le lexis identified. There are several areas of hyperintense signal seen in the white matter on the T2 an d FLAIR images most suggestive of small vessel ischemic disease. HEMORRHAGE: None. BRAINSTEM/CEREBELLUM: Normal. CALVARIUM: Normal. VISUALIZED PARANASAL SINUSES/MASTOIDS:Clear. EEK OF KHAN: Normal flow void. PITUITARY GLAND: Unremarkable. OTHER FINDINGS: None. IMPRESSION: 1. Unremarkable MRI of the brain. 2. Findings were discussed with the emergency department at 2:09 p.m. on 04/26/2022. DATA REPOSITORY:
[2022-04-26 13:48] LABS: INR 2.5 (0.9-1.1); Prothrombin Time 23.8 sec (9.3-11.0)
--- NOTE | 2022-04-26 14:15 | ED.GENADUL_ITS ---
Discharge Plan Disposition Patient Disposition: Home Condition: Stable Discharge Details Clinical Impression: Paresthesia, Headache, Hypertension Primary Care Provider: Eli Skaggs ED Provider: Florence Michelle Home Meds and New Rx's Prescriptions: New lorazepam [Ativan] 0.5 mg tablet 0.5 mg PO DAILY PRNQty: 7 0RF lorazepam [Ativan] 0.5 mg tablet 0.5 mg PO DAILY PRNQty: 7 0RF Continued amlodipine 5 mg tablet 10 mg PO DAILY metoprolol tartrate 25 mg tablet 25 mg PO ONCE PRN cholecalciferol (vitamin D3) 25 mcg (1,000 unit) capsule 25 mcg PO DAILY fluoxetine 20 MG capsule 20 mg PO DAILY multivitamin [Multi-Day] 1 EACH tablet 1 tab PO DAILY warfarin 1 mg Tablet See Rx Instructions .ROUTE .COMPLEX Rx Instructions: 2 mg on Mondays, 1mg all other days, or as directed losartan 100 mg Tablet 100 mg PO DAILY Discharge Instructions Instructions: Hypertension (ED), General Headache (ED) Additional Instructions: Your MRI, labs, and EKG of your heart are all within normal limits ED recommending follow-up with your primary care physician to set up an appointment within the next 24 hours Continue on your prescribed medications Take a multivitamin daily Please return earlier should you have new or worsening complaints You may take a dose of Ativan, this medication can be addictive so use sparingly, and do not drive for 8 hours after taking this medication Referrals: Eli Skaggs MD [Primary Care Provider] - 1 day Discharge Data Discharge Date/Time-TO BE ENTERED AT DEPARTURE: 04/26/22 14:33 Medical Decision Making 71-year-old female history of atrial fibrillation and chronic anticoagulation with high blood pressure sent in by her PCP for assessment of headache and paresthesias, MRI ordered to evaluate for stroke especially with atrial fibrillation history although it sounds like patient has had a therapeutic INR MRI does not show evidence of acute abnormality per radiology interpretation my review EKG shows normal sinus rhythm without any acute changes, please see my attendings documentation Diagnostic labs are reassuring The perioral paresthesias are unlikely to be a central neurological process clinically especially within normal MRI She will need close outpatient reassessment, her blood pressures been stable in the emergency department She is given low threshold to return should she have new or worsening complaints Medical Records Medical records reviewed: Yes I reviewed the patient's medical records. Lab Data Lab results reviewed: Yes I reviewed the patient's lab results. ECG Data Prior ECG tracings: available for review Sign Out No HPI General Date/Time Provider Initiated Documentation: 04/26/22 12:19 . HPI Narrative: This 71-year-old female with history of atrial fibrillation, hypertension presents with report of perioral paresthesias and lingual and paresthesias with headache for the past week. She denies any additional strength or sensation change. She denies any fever or chills. She denies any chest pain or shortness of breath. She does states she thinks she was in atrial fibrillation a week ago when she took her 25 mg of metoprolol which she takes as needed She is chronically anticoagulated on Coumadin and her INR's have been slightly supratherapeutic but she denies any bleeding. She states she has been undergoing significant stressors at home secondary to family issues. She states this has been within the past several days. She actually states that the perioral paresthesias started after conversation with her daughter. She has a mild headache at this time. She denies any additional strength, speech, or sensation changes. She has any falls or injuries. Related Data Home Medications Medication Instructions Recorded Confirmed fluoxetine 20 mg capsule 20 mg PO DAILY 06/27/14 04/26/22 multivitamin (Multi-Day tablet) 1 tab PO DAILY 06/27/14 04/26/22 losartan 100 mg tablet 100 mg PO DAILY 07/22/18 04/26/22 warfarin 1 mg tablet See Rx Instructions .Route .COMPLEX 07/22/18 04/26/22 amlodipine 5 mg tablet 10 mg PO DAILY 09/22/18 04/26/22 metoprolol tartrate 25 mg tablet 25 mg PO ONCE PRN 04/02/19 04/26/22 cholecalciferol (vitamin D3) 25 25 mcg PO DAILY 02/04/22 04/26/22 mcg (1,000 unit) capsule lorazepam 0.5 mg tablet (Ativan) 0.5 mg PO DAILY PRN #7 tabs 04/26/22 lorazepam 0.5 mg tablet (Ativan) 0.5 mg PO DAILY PRN #7 tabs 04/26/22 Previous Rx's Medication Instructions Recorded lorazepam 0.5 mg tablet (Ativan) 0.5 mg PO DAILY PRN #7 tabs 04/26/22 lorazepam 0.5 mg tablet (Ativan) 0.5 mg PO DAILY PRN #7 tabs 04/26/22 Allergies Allergy/AdvReac Type Severity Reaction Status Date / Time bacitracin Allergy Mild Skin Rash Verified 04/26/22 12:24 penicillin G AdvReac Mild HEMORRHOIDS Verified 04/26/22 12:24 SWELL General Stated Complaint: GenMedical DENAE: 3 Review of Systems All systems reviewed & are unremarkable except as noted in HPI and below PFSH All Active Problems (Updated 04/26/22 @ 14:20 by GORAN Dean) Paresthesia (Acute) Headache (Acute) Seborrheic keratosis (Acute) Neoplasm of unspecified behavior of bone, soft tissue, and skin (Acute) Mixed hyperlipidemia (Chronic) Depression (Chronic) Facial cellulitis (Acute) Current use of roasterman anticoagulation (Chronic) Paroxysmal atrial fibrillation (Chronic) 68-year-old woman with paroxysmal atrial fibrillation, hypertension and hyperlipidemia. She is on long-term anti-correlation with warfarin and was on antiarrhythmic therapy since 2014 without significant recurrence of PAF. Her [id number] score is 3 for female gender, hypertension and age above 65. She had breakthrough atrial fibrillation in July 2018 in the setting of a periorbital cellulitis. Dr. Martinez recommended discontinuation of rhythm cont rol with dronedarone and switch to rate control with metoprolol. Hypertension (Chronic) Paroxysmal atrial fibrillation (Acute 02/18/15) roasterman current use of antiarrhythmic drug (Acute 07/15/16) Essential hypertension (Acute 02/18/15) Current use of roasterman anticoagulation (Acute 07/15/16) Social History Smoking/Tobacco Use Status: Former Tobacco Use Smoking risk assessment performed?: Yes Alcohol Intake: current Alcohol Intake frequency: holidays/special occasions only Drug use: Never Substance use type: does not use Household members: spouse Housing: house What type of physical activity do you participate in: walking and additional Details: sitting pedal aparatus, snow shoes but exercise has been limited d/t winter Do you feel safe at home: Yes Do you feel safe in your relationship?: Yes Exam Const General: cooperative, comfortable and no acute distress HENMT Head: normal to inspection Mouth: oral mucosae normal Eyes Pupils: PERRL EOM: EOM intact bilaterally Resp Effort & Inspection: normal respiratory effort Auscultation: clear to auscultation bilaterally Cardio Rate: regular rate Rhythm: regular rhythm GI Inspection: normal to inspection Auscultation: normal bowel sounds Skin General skin exam: no rashes or lesions noted Neuro General: patient alert and patient oriented x3 Cranial Nerves: CN's II-XI intact bilaterally and tongue midline Cognition: normal cognition Speech: speech normal Gait: normal gait Motor: muscle tone normal throughout, strength 5/5 throughout and no pronator drift Sensory Exam: no sensory deficits noted Extrem General: normal to inspection Right upper extremity: normal to inspection Other: Neurovascularly intact Course Vital Signs Vital signs: Vital Signs Temperature 36.7 C 04/26/22 12:21 Pulse 70 04/26/22 12:21 Respiratory Rate 16 04/26/22 12:21 Blood Pressure 148/61 H 04/26/22 12:21 Pulse Oximetry 98 04/26/22 12:21 Temperature 36.7 C 04/26/22 12:21 Temperature Source Temporal Artery Scan 04/26/22 12:21 Pulse 70 04/26/22 12:21 Respiratory Rate 16 04/26/22 12:21 Respiratory Effort Non-Labored 04/26/22 13:19 Respiratory Depth Normal 04/26/22 13:19 Respiratory Pattern Normal 04/26/22 13:19 Blood Pressure 148/61 H 04/26/22 12:21 Blood Pressure Position Sitting 04/26/22 12:21 Pulse Oximetry 98 04/26/22 12:21 Oxygen Delivery Method Room Air 04/26/22 12:21 Oxygen Flow Rate 0 04/26/22 12:21 Pain Level 1 04/26/22 13:01 Lab/Test Results Lab/Test Results: Laboratory Tests Range/Units 04/26/22 04/26/22 13:15 13:15 WBC (4.4-10.8) 10^3/uL 5.70 RBC (3.93-5.22) 10^6/uL 4.91 Hgb (11.2-15.7) g/dL 14.5 Hct (36.0-46.0) % 44.6 MCV (80-95) fL 91 MCH (27.0-33.0) pg 29.5 MCHC (32.0-36.0) % 32.5 RDW (11.7-14.6) % 13.2 Plt Count (130-400) 10^3/uL 270 MPV (8.0-11.0) fL 9.6 Immature Gran % 0.4 Neutrophils % 56.6 Lymphocytes % 30.2 Monocytes % 8.6 Eosinophils % 2.8 Basophils % 1.4 Nucleated RBC % (0.0-0.3) % 0.0 Absolute Neutrophils (1.2-6.7) 10^3/uL 3.23 Absolute Lymphocytes (1.2-3.4) 10^3/uL 1.72 Absolute Monocytes (0.1-0.8) 10^3/uL 0.49 Absolute Eosinophils (0.0-0.7) 10^3/uL 0.16 Absolute Basophils (0.0-0.2) 10^3/uL 0.08 Sodium (136-145) mmol/L 140 Potassium (3.5-5.1) mmol/L 3.4 L Chloride (98-107) mmol/L 103 Carbon Dioxide (21.0-32.0) mmol/L 28.0 Anion Gap (3-11) mmol/L 9.0 BUN (7-18) mg/dL 21 H Creatinine (0.55-1.02) mg/dL 1.0 Est GFR (CKD-EPI 2020) (mL/min/1.73m2) 59.86 Glucose (74-106) mg/dL 100 Calcium (8.5-10.1) mg/dL 8.9 Total Bilirubin (0.2-1.0) mg/dL 0.3 AST (15-37) U/L 22 ALT (14-59) U/L 24 Alkaline Phosphatase (46-116) U/L 119 H Troponin I (<or=60) ng/L < 50 Total Protein (6.4-8.2) g/dL 7.5 Albumin (3.4-5.0) g/dL 3.7
== END 2022-04-26 14:33 | disposition home or self-care (01) ==
PROVIDERS: Emergency Provider Physician Assistant; PCP Family Medicine
DX: R20.2 Paresthesia of skin (principal); R51.9 Headache, unspecified; I10 Essential (primary) hypertension; I48.91 Unspecified atrial fibrillation; Z79.01 Long term (current) use of anticoagulants
CPT/HCPCS: 36415; 80053; 93005; 99284; 70551; 71045; 84484; 85025; 85610; 93010; 99285

== ENCOUNTER 2022-06-03 10:33 | Outpatient (REF) | payer MEDICARE, SELFPAY ==
--- NOTE | 2022-06-03 10:05 | SKI_PTH ---
PATIENT: Gema Grace LOC: N U#:[id number] AGE/SX: 71/F ROOM: RE06/03/[address]: GORAN Jackson : 1950 BED: DIS: 06/03/2022 SPEC #: [id number] RECD: 06/03/22 14:28 STATUS: ARNEL REMustapha #: [id number] LORETTA: 06/03/22 10:[address]: Jono Munoz DEPT: Surgical Specimen RECD BY: Florence Mckinney ENTERED: 06/03/22 14:28 SP TYPE: SYDNIE OTHR DR: Eli Skaggs Tissues: 1 - SKIN BIOPSY(SHAVE/PUNCH) Procedures: SKIN LEVEL 4 Comments: [id number]
== END 2022-06-03 10:34 | disposition home or self-care (01) ==
LOC: LBN 10:33
PROVIDERS: PCP Family Medicine; Visit Provider Physician Assistant
DX: D49.2 Neoplasm of unspecified behavior of bone, soft tissue, and skin (principal)
CPT/HCPCS: 88305

== ENCOUNTER 2022-06-09 01:44 | Outpatient (CLI) | payer MEDICARE, SELFPAY ==
--- NOTE | 2022-06-09 11:58 | DI.MAMMO_ITS ---
Exam(s) MAMMO SCREENING EXAM: MAMMO SCREENING CLINICAL HISTORY: SCREENING, Z12.39. TECHNIQUE: Bilateral full field digital CC and MLO mammographic images were obtained with 3D tomosyn thesis and utilizing computer aided detection (CAD). COMPARISON: Prior mammograms were reviewed. FINDINGS: There are no new significant radiograph findings in the right breast. In the left breast on CC view there is a new asymmetric density measuring 6 x 4 millimeters located 5 cm in from the nipple on CC view and persisting as a nodular density on the 3D image. Requires furt her imaging. There are no malignant-appearing microcalcification groups in this region nor elsewhere in either breast. A benign-appearing microcalcification group medially in left breast is unchanged from prior studies. There is no significant architectural distortion nor skin thickening-retraction. IMPRESSION: 1. No radiographic evidence of malignancy in the right breast. 2. New asymmetric density-possible nodule in the left breast as described above. Recommend spot comp ression 3D cc view of the left breast as well as complete left breast ultrasound. BI-RADS Category 0 - Assessment Incomplete: Need additional imaging evaluation Breast Density - Category B - Scattered areas of fibroglandular density Breast density Category C or D implies that the patient has dense breast tissue. Dense breast tissue can make it harder to find cancer on a mammogram. Dense breast tissue is also associated with an incr eased risk of breast cancer. This information about the result of the mammogram report was provided to the patient to raise their awareness. Use this report when you speak with the patient about their risks for breast cancer, which includes their family history. At that time, you may recommend additional screening tests (Ultrasoun d or MRI) as these tests may add significant information. A negative radiographic report should not delay biopsy if a dominant or clinically suspicious mass is present. Up to ten percent of cancers are not identified on mammography. A negative report may reinforce clinical impression. Adenosis and dense breasts may obscure an underlying neoplasm. False positive reports average 6 to 10%. Patient will receive a letter notifying them of these results.
== END 2022-06-09 02:04 ==
LOC: DI 01:44
PROVIDERS: PCP Family Medicine; Visit Provider Family Medicine
DX: Z12.31 Encounter for screening mammogram for malignant neoplasm of breast (principal); R92.8 Other abnormal and inconclusive findings on diagnostic imaging of breast
CPT/HCPCS: 77063; 77067

== ENCOUNTER 2022-06-15 09:49 | Outpatient (CLI) | payer MEDICARE, SELFPAY ==
--- NOTE | 2022-06-15 | DI.MAMMO_ITS ---
Exam(s) MG MAMMO SCREEN CALL BACK UNI US BREAST LT COMPLETE EXAM: MG MAMMO SCREEN CALL BACK UNI CLINICAL HISTORY: F/U MAMMO, R92.8,NEW ASYMMETRIC DENSITY LT. TECHNIQUE: Craniocaudal and mediolateral oblique spot compression digital Mammography views of the l eft breast followed by Tomosynthesis and left breast ultrasound. COMPARISON: MG Screening Bilat Mammo from 08/15/2013 MG Screening Bilat Mammo from 06/23/2015 MG Screening Bilat Mammo from 06/27/2016 MG MG mammo screening from 06/28/2018 MG MG MAMMO SCREENING from 05/28/2020 MG MG MAMMO SCREEN CALL BACK UNI from 06/05/2020 MG MG MAMMO DIAGNOSTIC UNI from 09/01/2020 MG MG MAMMO SCREENING from 06/03/2021 MG MG MAMMO SCREENING from 06/09/2022 US US BREAST LT COMPLETE from 06/15/2022 FINDINGS: Mammography/Tomosynthesis: Masses/Architectural Distortion: Persistent 7 x 5 millimeter nodule in the central left breast. Bord ers are indistinct. There is a question of mild associated spiculation. Microcalcifictions: No suspicious pleomorphic-type are seen. Skin Thickening/Nipple Retraction: None. Left breast US: Echotexture: Normal appearance of the glandular tissue. Shadowing: No suspicious foci. Cyst: None. Solid lesions: 6 x 4 x 4 millimeter hypoechoic nodule 12 o'clock position 1 cm from the nipple. Its borders are indistinct. No vascularity demonstrated. No additional lesions. No abnormal lymph node s detected in the axilla. Ductal dilation: None. IMPRESSION: 1. 6 millimeter nodule at 12 o'clock position of the left breast shows mildly suspicious features. B iopsy is recommended. This could be performed using ultrasound guidance. 2. The findings were discussed with the patient on the date of the examination. Findings called to Joanne Skaggs, referring provider. BI-RADS Category 4 - Suspicious Abnormality: Biopsy should be considered Breast Density - Category B - Scattered areas of fibroglandular density A negative radiographic report should not delay biopsy if a dominant or clinically suspicious mass is present. Up to ten percent of cancers are not identified on mammography. A negative report may reinforce clinical impression. Adenosis and dense breasts may obscure an underlying neoplasm. False positive reports average 6 to 10%. Patient will receive a letter notifying them of these results.
== END 2022-06-15 10:09 ==
PROVIDERS: PCP Family Medicine; Visit Provider Family Medicine
DX: Z12.31 Encounter for screening mammogram for malignant neoplasm of breast (principal); R92.8 Other abnormal and inconclusive findings on diagnostic imaging of breast; N63.25 Unspecified lump in the left breast, overlapping quadrants
CPT/HCPCS: 76642; 77063; 77067

== ENCOUNTER 2022-07-06 01:28 | Outpatient (CLI) | payer MEDICARE, SELFPAY ==
--- NOTE | 2022-07-06 | DI.US_ITS ---
Exam(s) US NEEDLE LOCAL BREAST WO RAD EXAM: LT BREAST MASS COMPARISON: US US BREAST LT COMPLETE from 06/15/2022 TECHNIQUE: Ultrasound performed using standard protocol. FINDINGS: Sonography was provided for Dr. Von Fair during the performance of a left breast biopsy. Please refer to the procedure report for complete details. DATA REPOSITORY:
--- NOTE | 2022-07-06 13:18 | BREAST_PTH ---
PATIENT: Gema Grace LOC: DI U#:[id number] AGE/SX: 71/F ROOM: RE07/06/[address]: Von Fair MD : 1950 BED: DIS: 07/06/2022 SPEC #: [id number] RECD: 07/06/22 13:26 STATUS: ARNEL REQ #: [id number] LORETTA: 07/06/22 13:[address]: Von Fair DEPT: Surgical Specimen RECD BY: Florence Mckinney ENTERED: 07/06/22 13:27 SP TYPE: Breast OTHR DR: Eli Skaggs Tissues: 1 - BREAST BX NEEDLE Procedures: GROSS AND MICRO LEVEL 4 [id number] IPEX ESTROGEN/PROGESTERONE RECEPTOR IPEX STAIN Comments: [id number]
--- NOTE | 2022-07-06 17:04 | W.PROCNOTE ---
Date of service: 07/06/22 Time of Service: 13:45 Procedure Note Date of procedure: 07/06/22 Procedure: Ultrasound-guided core needle biopsy of left breast mass Surgeon/Proceduralist/Physician: Von Fair Procedure Diagnosis: Left breast mass suspicious on mammogram and ultrasound Procedure Indications: Gema is a 71-year-old woman with a suspicious mass in the left breast detected on screening mammogram. This was followed up with an ultrasound confirming a solid 6 x 4 x 4 mm hypoechoic nodule in the 12 o'clock position approximately 1 cm from the nipple. This was interpreted as a BI-RADS Category 4 suspicious abnormality and biopsy was recommended Procedure Description: After reviewing the risks and benefits of a core needle biopsy with Gema, she provided informed consent. Then, with the assistance of facility practice specialist, we localized the lesion that was identified on the previous ultrasound. It was in the 12 o'clock position, and approximately 1 cm from the left nipple. In an area adjacent to the ultrasound probe, I then prepped the skin. Using local anesthetic, I anesthetized the skin, and the trajectory towards the lesion. Then, with the assistance of the real-time ultrasound, I advanced a 22 mm Bard core needle biopsy device towards the lesion. I obtained 3 core needle biopsy specimens. Next, I deployed a titanium ultra clip to breast tissue marker in the area of the lesion. I held pressure over the biopsy site, and dressed the skin puncture site with a Band-Aid.
== END 2022-07-06 01:48 ==
LOC: DI 01:28
PROVIDERS: PCP Family Medicine; Visit Provider Surgery
DX: C50.812 Malignant neoplasm of overlapping sites of left female breast (principal); N63.21 Unspecified lump in the left breast, upper outer quadrant
CPT/HCPCS: 19083; 76942; 88305; 88360

== ENCOUNTER → 2022-08-04 09:26 | Outpatient (BNVA) | payer MEDICARE, SELFPAY | PROVIDERS: PCP Family Medicine; Visit Provider Internal Medicine Cardiovascular Disease | DX: I48.0 Paroxysmal atrial fibrillation (principal); I10 Essential (primary) hypertension | CPT/HCPCS: 99213 ==

== ENCOUNTER 2022-11-01 03:27 | Outpatient (CLI) | payer MEDICARE, SELFPAY ==
[2022-11-02 09:48] LABS: DHEA Sulfate 25 ug/dL (See Note)
[2022-11-07 10:01] LABS: Renin Activity, Plasma <0.6 ng/mL/h
== END 2022-11-01 03:28 | disposition home or self-care (01) ==
LOC: LBO 03:27
PROVIDERS: PCP Family Medicine; Visit Provider Family Medicine
DX: D35.00 Benign neoplasm of unspecified adrenal gland (principal); I10 Essential (primary) hypertension
CPT/HCPCS: 36415; 82533; 82627; 82088; 84244

== ENCOUNTER → 2023-01-26 02:00 | Outpatient (CLI) | payer MEDICARE, SELFPAY ==
--- NOTE | 2023-01-26 13:58 | DI.US_ITS ---
APPROVED REPORT EXAM: Comprehensive 2D, Doppler, and color-flow Echocardiogram Patient Location: Out-Patient Triple Valve Tester: Mckenzie Jurado RDCS (AE) Indications: Aortic Stenosis Other Information Study Quality: Adequate Conclusion Normal left ventricular wall thickness and chamber size. Ejection fraction is 55 to 60%. Wall motio n is normal Normal right ventricular size and systolic function Both atria are normal in size Aortic valve is trileaflet without stenosis or regurgitation Normal mitral valve with moderate regurgitation Normal tricuspid valve with trace to mild regurgitation. Estimated right ventricular systolic pressu re is 21 mmHg Wall motion Left Ventricle The left ventricle is normal size. The left ventricular systolic function is normal. The left ventric ular ejection fraction is within the normal range. There is normal left ventricular wall thickness. T here is normal LV segmental wall motion. There is no ventricular septal defect visualized. LVEF is 55 %. Right Ventricle The right ventricle is normal size. The right ventricular systolic function is normal. Atria The left atrium size is normal. The right atrium size is normal. The interatrial septum is intact wi th no evidence for an atrial septal defect. Aortic Valve The aortic valve is normal in structure. Aortic valve is trileaflet. There is no aortic valvular sten osis. No aortic regurgitation is present. Mitral Valve The mitral valve is normal in structure. No evidence of mitral valve stenosis. Moderate mitral regur gitation. Tricuspid Valve The tricuspid valve is normal in structure. There is no tricuspid valve stenosis. Trace to mild tricu spid regurgitation. Pulmonic Valve The pulmonary valve is normal in structure. There is no pulmonic valvular stenosis. There is no pulmo allegra valvular regurgitation. Great Vessels The aortic root is normal in size. The ascending aorta is normal in size. Aortic arch is normal in ca liber. IVC is normal in size and collapses >50% with inspiration. Pericardium There is no pericardial effusion. 2D Dimensions IVSD d PLAX 0.92 cm F: 0.6-1.0 Ao Root d 3.02 cm F: 2.7 - 3.3 LVPW d PLAX 0.88 cm F: 0.6 - 1.0 Ao Asc Diam d 3.16 cm F: 2.3 - 3.1 LVID d PLAX 3.88 cm F: 3.8 - 5.2 LVDs 2.80 cm F: 2.2 - 3.5 LV EF Teichholz 54.7 % FS 27.87 % LV EDV (Teich) 65.1 mL LV ESV (Teich) 29.5 mL M-Mode TAPSE 2.46 cm (M/F) >1.7 Auto EF LV EDV A4C 90.4 mL LV EDV A2C 85.4 mL LV EDV BP 87.6 mL LV ESV A4C 42.3 mL LV ESV A2C 38.7 mL LV ESV BP 40.0 mL LVEF(%) A4C 53.2 % LVEF(%) A2C 54.7 % LVEF(%) BP 54.3 % LV SV A4C 48.1 ml LV SV A2C 46.7 ml LV SV BP 47.6 ml LV CO A4C 3.6 L/min LV CO A2C 4.5 L/min LV CO BP 4.1 L/min HR A4C 75.63 BPM HR A2C 96.00 BPM LV EDV Index (BP) LA Volume LA Length A4C 5.0 cm LA Length A2C 4.7 cm LA Area A4C s 15.75 cm2 LA Area A2C s 15.78 cm2 LA Vol A4C A-L 42.29 mL LA Vol A2C A-L 44.71 mL LA Vol Biplane A-L 44.6 mL LA Vol/BSA A4C A-L LA Vol/BSA A2C A-L LA Vol/BSA BP A-L 24.0 mL/m2 LA Vol A4C MOD 38.6 mL LA Vol A2C MOD 38.5 mL LA Vol BP MOD 39.6 mL RA Volume RA Area A4C 12.7 cm2 RA ESV A4C (A-L) 31.0mL RA Vol/BSA A4C A-L RA Length A4C 4.4 cm RA ESV A4C (MOD) 29.4mL LV Diastology MV E' medial 0.113 (>0.07 m/s) MV E Vmax 0.83 (0.4-1.3 m/s) MV E/E' MED 7.31 (<14) MV A Vmax 0.40 (0.4-1.3 m/s) MV E' lateral 0.113 (>0.1 m/s) E/A Ratio 2.1 MV E/E' LAT 7.31 (<14) MV E' Average 0.113 m/s MV E/E'(average) 7.31 Aortic Valve AoV Vmax 0.93 m/s LVOT Vmax 0.72 m/s AoV Peak Grad 3.5 mmHg LVOT Peak Grad 2.1 mmHg AoV Area (Vmax) 2.10 cm2 LVOT VTI 0.154 m AoV VTI 0.198 m LVOT Mean Grad 1.0 mmHg AoV Mean Brent. 0.62 m/s LVOT SV 42.19 mL AoV Mean Grad 1.7 mmHg LVOT Diam s 1.85 cm AoV Area (VTI) 2.14 cm2 Velocity Ratio 0.77 Mitral Valve MV DT 141 (160-240 msec) Pulmonary Valve PV Vmax 0.84 (0.5-1.5 m/s) RVOT Vmax 0.57 m/s PV Peak Grad 2.8 mmHg RVOT Peak Gr. 1.3 mmHg PV Mean Brent 0.55 m/s RVOT VTI 0.133 m PV Mean Grad 1.4 mmHg RVOT Mean Gr. 0.8 mmHg Tricuspid Valve RA Pressure 3.00 mmHg TR Vmax 2.15 m/s TR Peak Grad 18.5 mmHg RVSP (TR) 21.5 mmHg
== END ==
PROVIDERS: PCP Family Medicine; Visit Provider Family Medicine
DX: I48.0 Paroxysmal atrial fibrillation (principal)
CPT/HCPCS: 93306

== ENCOUNTER 2023-02-03 08:44 | Outpatient (CLI) | payer MEDICARE, SELFPAY ==
--- NOTE | 2023-02-03 08:45 | RT.EKG_ITS ---
APPROVED REPORT Exam: Resting ECG Reason for Exam: PAF Patient Location: O HR:83 bpm ECG Measurements Heart Rate 83 AXIS [place] [id number] P [id number] QRSd 96 QRS 1 QT 375 T 39 QTc 441 Conclusion Atrial fibrillation...? atrial activity RSR' in V1 or V2, probably normal variant...small R' only
== END 2023-02-03 08:45 | disposition home or self-care (01) ==
LOC: DI.CARD 08:56
PROVIDERS: PCP Family Medicine; Visit Provider Internal Medicine Cardiovascular Disease
DX: I48.0 Paroxysmal atrial fibrillation (principal)
CPT/HCPCS: 93010

== ENCOUNTER → 2023-02-03 08:44 | Outpatient (BNVA) | payer MEDICARE, SELFPAY | PROVIDERS: PCP Family Medicine; Referring Provider Family Medicine; Visit Provider Internal Medicine Cardiovascular Disease | DX: Z79.01 Long term (current) use of anticoagulants (principal); I48.0 Paroxysmal atrial fibrillation; I10 Essential (primary) hypertension | CPT/HCPCS: 93005; 99214 ==

== ENCOUNTER 2023-03-15 11:10 | Outpatient (REF) | payer MEDICARE, SELFPAY ==
[2023-03-15 16:03] LABS: Hemoglobin A1C 5.2 % (<5.7)
[2023-03-15 16:14] LABS: Anion Gap 11.4 mmol/L (3-11); BUN 22 mg/dL (7-18); CO2 26.6 mmol/L (21.0-32.0); CREATININE 1.1 mg/dL (0.55-1.02); Calcium 9.4 mg/dL (8.5-10.1); Calculated LDL 128 mg/dL (<100); Chloride 105 mmol/L (98-107); Cholesterol 238 mg/dL (<200); Estimated GFR 53.06 (mL/min/1.73m2); Glucose 94 mg/dL (74-106); HDL Cholesterol 78 mg/dL (40-60); Potassium 4.4 mmol/L (3.5-5.1); Sodium 143 mmol/L (136-145); Triglyceride 161 mg/dL (<150)
== END 2023-03-15 11:11 | disposition home or self-care (01) ==
LOC: NCHCN 11:10
PROVIDERS: PCP Family Medicine; Visit Provider Family Medicine
DX: I10 Essential (primary) hypertension (principal); I48.0 Paroxysmal atrial fibrillation; R35.89 Other polyuria
CPT/HCPCS: 80048; 80061; 83036; 84443

== ENCOUNTER 2023-06-21 12:48 | Outpatient (CLI) | payer MEDICARE, SELFPAY ==
--- NOTE | 2023-06-21 13:30 | RT.EKG_ITS ---
APPROVED REPORT Exam: Resting ECG Reason for Exam: paroxysmal atrial fibrillation Patient Location: O HR:50 bpm ECG Measurements Heart Rate 50 AXIS MA 199 P 70 QRSd 88 QRS 42 QT 458 T 62 QTc 418 Conclusion Sinus rhythm...normal P axis, V-rate 50- 99 Low voltage, precordial leads...precordial leads <1.0mV I have reviewed and interpreted ECG and agree with software generated interpretation.
== END 2023-06-21 12:49 | disposition home or self-care (01) ==
LOC: DI.CARD 13:39
PROVIDERS: PCP Family Medicine; Referring Provider Family Medicine; Visit Provider Internal Medicine Cardiovascular Disease
DX: I48.91 Unspecified atrial fibrillation (principal)
CPT/HCPCS: 93010

== ENCOUNTER → 2023-06-21 12:48 | Outpatient (BNVA) | payer MEDICARE, SELFPAY | PROVIDERS: PCP Family Medicine; Referring Provider Family Medicine; Visit Provider Internal Medicine Cardiovascular Disease | DX: I48.0 Paroxysmal atrial fibrillation (principal) | CPT/HCPCS: 93005; 99215 ==

== ENCOUNTER → 2023-08-04 08:47 | Outpatient (BNVA) | payer MEDICARE, SELFPAY | PROVIDERS: PCP Family Medicine; Visit Provider Internal Medicine Cardiovascular Disease | DX: I48.0 Paroxysmal atrial fibrillation (principal); I10 Essential (primary) hypertension | CPT/HCPCS: 99213 ==

== ENCOUNTER → 2023-08-17 02:02 | Outpatient (CLI) | payer MEDICARE, SELFPAY ==
--- NOTE | 2023-08-17 06:20 | ETT_ITS ---
APPROVED REPORT Exam: Exercise Treadmill Patient Location: Out-Patient Room/Bed: Stress Nurse: Liv Blanchard RN Ordering Provider:EDILIA GONZALEZ, Contact Number: BMI: 25.84 Baseline Rhythm: Sinus Bradycardia Indications: Atrial fibrillation Medical History Medical History: Paroxysmal afib, breast CA, HLD, depression, HTN Cardiac Medications: Losartan, amlodipine, metoprolol tartrate, atorvastatin, flecainide, warfarin Allergies: Bacitracin, penicillin Cardiac Risk Factors: Family Hx, HTN, HLD, former smoker Previous Cardiac Procedures: None Pretest Chest Pain Characteristics: None Exercise History: Sedentary Physical Disabilities: None Lung Sounds: Clear to auscultation Heart Sounds: Bradycardia Stress Test Details Test: Exercise stress testing was performed using a Xavier protocol. Rest Stress HR Resting HR Supine: 59 bpm Max Heart Rate (APMHR): 147 bpm Resting HR Standin bpm Target HR (85% APMHR): 125 bpm Max HR Achieved: 128 bpm % of APMHR: 87 Recovery HR: 67 bpm HR response to stress: Normal HR response to stress BP Resting BP Supine: 142/80 mmHg Resting BP Standin/76 mmHg Max BP: 170/58 mmHg Recovery BP: 148/60 mmHg BP response to stress: Normal blood pressure response to stress. ECG Resting ECG: Sinus Bradycardia Ectopy: None Stress ECG: Sinus Tachycardia ST Change: No significant ST segment changes noted Arrhythmia: None Recovery ECG: Sinus Rhythm Recovery ST Change: No significant ST segment changes noted Recovery Arrhythmia: None Clinical Reason for Termination: Target HR Achieved, Fatigue, SOB Stress Symptoms: General Fatigue, mod SOB Exercise duration: 08 min01 sec Highest Stage Reached: Stage 3: 3.4 mph at 14% grade. Exercise capacity: 7.15 METs Angina Score: None Gustafson Treadmill Score: 7.5 Rate Pressure Product: 58629 Stress ECG Conclusion 1. Resting EKG was normal 2. Patient exercised on the Xavier protocol and completed a workload of 7.15 METS 3. Normal heart rate and blood pressure response to exercise. Patient achieved 87% of predicted heart rate for age 4. There was no electrocardiogaphic evidence of myocardial ischemia 5. There were no dysrhythmias Gustafson Treadmill Score is 7.5 which is Low risk.
== END ==
PROVIDERS: PCP Family Medicine; Visit Provider Internal Medicine Cardiovascular Disease
DX: I48.0 Paroxysmal atrial fibrillation (principal)
CPT/HCPCS: 93016; 93018; 93017

== ENCOUNTER 2023-09-08 11:31 | Outpatient (CLI) | payer MEDICARE, SELFPAY ==
--- NOTE | 2023-09-08 11:45 | RT.EKG_ITS ---
APPROVED REPORT Exam: Resting ECG Reason for Exam: Follow up EKG Needed Patient Location: O HR:53 bpm ECG Measurements Heart Rate 53 AXIS WV 213 P 68 QRSd 99 QRS 8 QT 464 T 41 QTc 436 Conclusion Sinus rhythm...normal P axis, V-rate 50- 99 Borderline prolonged WV interval...WV >212, V-rate 50- 90 Left atrial enlargement...P, P'>60mS, <-0.15mV V1 RSR' in V1 or V2,
== END 2023-09-08 11:32 | disposition home or self-care (01) ==
LOC: DI.CARD 11:46
PROVIDERS: PCP Family Medicine; Visit Provider Internal Medicine Cardiovascular Disease
DX: Z79.01 Long term (current) use of anticoagulants (principal); I48.91 Unspecified atrial fibrillation
CPT/HCPCS: 93010

== ENCOUNTER → 2023-09-08 11:31 | Outpatient (BNVA) | payer MEDICARE, SELFPAY | PROVIDERS: PCP Family Medicine; Visit Provider Internal Medicine Cardiovascular Disease | DX: I48.0 Paroxysmal atrial fibrillation (principal) | CPT/HCPCS: 99213 ==

== ENCOUNTER → 2023-10-03 11:06 | Outpatient (BNVA) | payer MEDICARE, SELFPAY | PROVIDERS: PCP Family Medicine; Referring Provider Family Medicine; Visit Provider Internal Medicine Cardiovascular Disease | DX: I48.0 Paroxysmal atrial fibrillation (principal) | CPT/HCPCS: 99213 ==

== ENCOUNTER → 2023-12-21 10:18 | Outpatient (BNVA) | payer MEDICARE, SELFPAY | PROVIDERS: PCP Family Medicine; Referring Provider Family Medicine; Visit Provider Physical Therapy Assistant | DX: Z12.11 Encounter for screening for malignant neoplasm of colon (principal); Z80.0 Family history of malignant neoplasm of digestive organs ==

== ENCOUNTER 2024-01-05 09:56 | Day surgery (SDC) | payer MEDICARE, SELFPAY ==
--- NOTE | 2024-01-04 23:11 | W.COLOREPORT ---
Date of service: 01/05/24 Time of Service: 11:53 Colonoscopy Report Date of procedure: 01/05/24 Pre-op diagnosis general: CRC screening Post-op diagnosis procedure note: other (perez divertic/polyps/I&E hemorrhoids ) Surgeon: Clover Morris Anesthesia Type: General:No Airway Estimated blood loss (mL): 1 Pathology: other Complications: None Disposition: same day Prep: Miralax/Dulcolax Retraction Time: 10 Procedure Description: After informed consent was obtained, explaining risks of the procedure, including but not limits to: bleeding, infections, complications of anesthesia, perforations (which may require antibiotics and /or surgery and stay in the hospital), and abdominal pain/cramping. The patient was taken to the procedure room and placed in a left decubitous position. Monitors were applied and a time out was done. The patients name, date of , procedure, allergies to medications and metal in their body was reviewed. The patient was then sedated. Once sedated and comfortable a rectal exam was done. External exam: External hemorrhoidal tags and small hemorrhoids. Internal exam revealed a normal sphincter tone and no palpable masses. The previously lubricated Olympus scope was then introduced (see RN notes for scope number) and retrofelexed. Grade 1 and grade 2 internal hemorrhoids were identified x 3 columns. The scope was then advanced to the cecum without difficulty. The TI and appendiceal orifice were identified. The scope was then slowly retracted over 10 minutes back into the rectum. Polyps: A flat, .5cm polyp was found at 70cm and x2 at 20cm. This was removed with a cold biting forceps. All of the specimen was retrieved. This will be sent to pathology. There is no bleeding noted from the polypectomy site. Diverticula: pt had a small amount of small mouthed diverticula throughout the entirety of the colon.. There were no signs of active bleeding or infection. The mucosa is pink and healthy w/ a normal vascular pattern. The scope was removed, and the patient was woken up and taken back to Same day surgery in stable condition. The patient tolerated the procedure well and there were no immediate complications. Follow up: The patient does not require any further screening colonoscopies, unless they develop changes in bowel habits or other new gastrointestinal complaints. [place] Bowel Prep [place] Bowel Prep Right Colon: 3 Left Colon: 3 Transverse Colon: 3 Total Score: 9
--- NOTE | 2024-01-04 23:11 | W.PM.DSUDISC ---
Date of service: 01/05/24 Time of Service: 12:02 Discharge Plan Disposition Patient Disposition: Home Condition: Good Discharge Details Reason For Visit: colon scope Attending Provider: Clover Morris Primary Care Provider: Eli Skaggs Home Meds and New Rx's Prescriptions: Continued amlodipine 5 mg tablet 10 mg PO DAILY anastrozole 1 mg tablet 1 mg PO DAILY metoprolol tartrate 25 mg tablet 12.5 mg PO DAILY cholecalciferol (vitamin D3) 25 mcg (1,000 unit) capsule 25 mcg PO DAILY atorvastatin 20 mg tablet 20 mg PO DAILY fluoxetine 20 MG capsule 20 mg PO DAILY multivitamin [Multi-Day] 1 EACH tablet 1 tab PO DAILY losartan 100 mg Tablet 100 mg PO DAILY Held warfarin 1 mg tablet See Rx Instructions .ROUTE .COMPLEX Hold Instructions: Resume on 01/10/24. Rx Instructions: 1mg once a daily except for Wednesdays. Discontinued bisacodyl [Dulcolax (bisacodyl)] 5 mg tablet,delayed release (DR/EC) 5 mg PO ONCE Qty: 4 0RF Rx Instructions: Take per colonoscopy instructions provided by ordering providers office polyethylene glycol 3350 17 gram/dose powder 17 g PO ONCE Qty: 238 0RF Rx Instructions: Take per colonoscopy instructions provided by ordering providers office Discharge Instructions Additional Instructions: DSU Colonoscopy Post-Op Instructions Instructions for Everyone who is given Anesthesia: For your safety, please do the following for the next twenty-four (24) hours: *Do Not operate a motor vehicle (car, truck, motorcycle, etc.) *Do Not drink alcoholic beverages or use any recreational drugs for the first 24 hours or while taking pain medications. The medications in your body may have a reaction that can be dangerous. *Do Not make any important decisions or sign any important papers. Findings: -Polyps (small) -Diverticula. Make sure you are moving your bowels on a regular basis and not straining to go to the bathroom. If you find you are having problems with constipation or straining then is recommended you start a fiber supplement such as Metamucil daily. -Resume Coumadin on MondayJanuary 09. 1. No lifting over 20 pounds or strenuous activity for the first 24 hours after your procedure. After 24 hours there are no restrictions on your activity but you may feel fatigued for a few days. 2. After you arrive home you may have a light meal and return to your normal diet as you can tolerate it without feeling sick to your stomach. 3. You may have a bloated, gaseous feeling in your belly (abdomen) after a colonoscopy. Passing gas and belching will help. Walking or lying down on your left side with your knees flexed may relieve the discomfort. Call the office at [phone] (Office) or [phone] (Hospital) right away if you notice any of the following: a.Vomiting of blood or ?coffee ground stools?. b.Rectal bleeding 1Tbsp, blood clots or continuous bleeding. c.Severe belly (abdominal) pain. d.A hard distended belly (abdomen) and an inability to pass gas. 4. Please don?t expect to have a normal BM (bowel movement) for 2-3 days after your procedure. 5. If there are questions regarding the findings of your procedure, please contact your doctor 6. If you are unable to contact your doctor with a problem, contact the hospital at [phone]. 7. Continue all your regular medications unless directed otherwise. I understand the above instructions and have no questions. Signature of Patient or Adult Escort Name of Responsible Adult Escort Signature of Nurse Date/Time Stand Alone Forms: Anesthesia Discharge Inst., Sandra Wongjarad (DSU) Activity:: see above Diet:: see above DS: Diagnosis Discharge Diagnosis (1) Depression: Status: Chronic (2) Hypertension: Status: Chronic (3) Essential hypertension: Status: Acute (4) Paroxysmal atrial fibrillation: Status: Chronic (5) senior living current use of antiarrhythmic drug: Status: Inactive (6) Mixed hyperlipidemia: Status: Chronic (7) Hypertension, benign: (8) Breast cancer: Status: Chronic (9) Screening for malignant neoplasm of colon performed: Status: Acute Asessment and Plan: The patient is seen and examined after their colonoscopy.? The patient has been able to pass gas.? They are not having abdominal pain.? They have been able to tolerate liquids and a snack.? They do not have any nausea or vomiting.? They are not having any chest pain or shortness of breath.??? They are not having any rectal bleeding. Their vital signs have been stable-see nursing notes. We discussed findings during their colonoscopy, and any biopsies that were done/polyps that were removed. The patient will be sent a letter with any biopsy results, and when to repeat the colonoscopy.-see discharge instructions. Patient was given explicit instructions to follow-up regarding colonoscopy-refer to discharge instructions.? We reviewed resumption of medications. Patient verbalized understanding and discharged in stable and satisfactory condition- See nursing notes.
--- NOTE | 2024-01-05 06:11 | ANES.PREOP_ITS ---
General Info Date of Service Date Performed: 01/05/24 Height: 5 ft 8 in Weight: 75.296 kg Body Mass Index (BMI): 25.2 Surgical Procedure: Operation Date: 01/05/24 10:35 Proposed Procedure Side Surgeon ren Morris, DO Meds Allergies and Home Medications Allergies Allergy/AdvReac Type Severity Reaction Status Date / Time bacitracin Allergy Mild Skin Rash Verified 01/05/24 10:21 penicillin G AdvReac Mild HEMORRHOIDS Verified 01/05/24 10:21 SWELL Home Medication ?Medication ?Instructions ?Recorded fluoxetine 20 mg capsule 20 mg PO DAILY 06/27/14 multivitamin (Multi-Day tablet) 1 tab PO DAILY 06/27/14 losartan 100 mg tablet 100 mg PO DAILY 07/22/18 amlodipine 5 mg tablet 10 mg PO DAILY 09/22/18 cholecalciferol (vitamin D3) 25 25 mcg PO DAILY 02/04/22 mcg (1,000 unit) capsule anastrozole 1 mg tablet 1 mg PO DAILY 02/03/23 metoprolol tartrate 25 mg tablet 12.5 mg PO DAILY 02/03/23 atorvastatin 20 mg tablet 20 mg PO DAILY Cholesterol 06/09/23 bisacodyl 5 mg tablet,delayed 5 mg PO ONCE #4 tabs 12/21/23 release (Dulcolax (bisacodyl)) polyethylene glycol 3350 17 17 g PO ONCE #238 grams 12/21/23 gram/dose oral powder warfarin 1 mg tablet See Rx Instructions .Route .COMPLEX 12/21/23 Current Visit Medications: Current Medications Generic Name Dose Route Start Last Admin Trade Name Freq PRN Reason Stop Dose Admin Ringer's Solution 1,000 mls @ 80 mls/hr 01/05/24 06:00 IV 01/05/24 23:59 INFUSION MERRILL IV Miscellaneous Supplies 1 each 01/05/24 06:00 Iv Access IV 01/05/24 23:59 DIRECTED MERRILL Sodium Chloride 0 ml 01/05/24 06:00 Normal Saline Flush 10 Ml Syr IV 01/05/24 23:59 PRN PRN Sodium Chloride 0 ml 01/05/24 06:00 Normal Saline 10 Ml Vial IJ 01/05/24 23:59 DIRECTED PRN Sterile Water 0 ml 01/05/24 06:00 Water,Injection,Sterile 10 Ml Vial IJ 08/23/24 23:59 DIRECTED PRN PFSH Active Problems Active Problems: Problem Status Onset Code Screening for malignant neoplasm of colon performed Acute Z12.11 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 Breast cancer Chronic C50.919 Seborrheic keratosis Acute L82.1 Neoplasm of unspecified behavior of bone, soft tissue, and skin Acute D49.2 Mixed hyperlipidemia Chronic E78.2 Depression Chronic F32.9 Facial cellulitis Acute L03.211 Current use of retirement anticoagulation Chronic Z79.01 Paroxysmal atrial fibrillation Chronic Hypertension Chronic Right ureteral stone Resolved 11/24/16 N20.1 Paroxysmal atrial fibrillation Acute 02/18/15 I48.0 nursing home current use of antiarrhythmic drug Acute 07/15/16 Z79.899 Essential hypertension Acute 02/18/15 I10 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 Acute 07/15/16 Z79.01 Medical History Medical History [place] angioma Benign colon polyp Hypertension, benign Atrial fibrillation Surgical History Surgical History Hx of colonoscopy History of cataract surgery Bilat H/O mastectomy Left breast History of ankle surgery Tobacco Smoking/Tobacco Use Status: Former Tobacco Use Alcohol Alcohol Intake: current Alcohol intake frequency: holidays/special occasions only Substance Use Substance use: Never Substance use type: does not use Vital Signs and Lab Results Vital Signs Most Recent Vital Signs in EMR: Temp Pulse Resp BP Pulse Ox 36.2 C L 85 16 138/81 97 01/05/24 10:25 01/05/24 10:25 01/05/24 10:25 01/05/24 10:25 01/05/24 10:25 Lab Results Blood Type / Crossmatch: No Data to Display Complete Blood Count: No Data to Display Complete Metabolic Panel: No Data to Display Liver Function Panel: No Data to Display Coagulation Panel: No Data to Display Cardiac Panel: No Data to Display Arterial Blood Gas: No Data to Display Venous Blood Gas: No Data to Display Pancreas Panel: No Data to Display Thyroid Panel: No Data to Display Infectious Disease: No Data to Display Blood Cultures: No Data to Display Toxicology Panel: No Data to Display Imaging and Studies Imaging and Studies Study information below may be from another EMR and interpreted by another provider. Please see original notes in EMR for more complete details. EKG Summary: 09/08/23 Conclusion Sinus rhythm...normal P axis, V-rate 50- 99 Borderline prolonged [place] interval...[place] >212, V-rate 50- 90 Left atrial enlargement...P, P'>60mS, <-0.15mV V1 RSR' in V1 or V2, Stress Test Summary: 08/17/23 Stress ECG Conclusion 1. Resting EKG was normal 2. Patient exercised on the Xavier protocol and completed a workload of 7.15 METS 3. Normal heart rate and blood pressure response to exercise. Patient achieved 87% of predicted heart rate for age 4. There was no electrocardiogaphic evidence of myocardial ischemia 5. There were no dysrhythmias Gustafson Treadmill Score is 7.5 which is Low risk. Echocardiogram Summary: 01/26/23 Conclusion Normal left ventricular wall thickness and chamber size. Ejection fraction is 55 to 60%. Wall motion is normal Normal right ventricular size and systolic function Both atria are normal in size Aortic valve is trileaflet without stenosis or regurgitation Normal mitral valve with moderate regurgitation Normal tricuspid valve with trace to mild regurgitation. Estimated right ventricular systolic pressure is 21 mmHg Anesthesia Assessment and Plan Anesthesia History Personal History: No History of Anesthesia Complications Family History: No Family History of Anesthesia Complications Exercise Tolerance Exercise Tolerance: Metabolic Equivalents>4 Pertinent Negatives Pertinent Negatives: No Symptoms of GERD, No Major Cardiovascular Symptoms or Complaints, No Major Pulmonary Symptoms or Complaints and No History of CVA/TIA Cardiac & Pulmonary Exam Cardiac Exam: Normal S1/S2 Heart Sounds Pulmonary Exam: Clear Bilateral Breath Sounds Implantable Cardiac Device Does patient have a Pacemaker or an ICD?: No Airway Exam Known Difficult Airway: No Mallampati Class: 2 Mouth Opening: Normal (> 3cm) Thyromental Distance: Greater than 3 cm Neck Range of Motion: Full ROM Neck Circumference: Normal Teeth Condition: Normal Dentition ASA Classification ASA Score: ASA 2 Emergency Case?: No NPO Status NPO Status: NPO Clears >2 hours, Solids >8 hours Anesthesia Plan Resuscitation Status: Full Code Anesthesia Technique: General Anesthesia Airway Planned: Natural Airway Monitors Used: Standard Monitors Preoperative Comments:: 73 y/o female with history of HTN, paroxysmal atrial fibrillation, breast CA, HLD, and depression presents for colonoscopy screening. She describes her last screening Colonoscopy was 10+ years ago
[2024-01-05 10:25] VITALS: BP 138/81; PULSE 85; RESP 16; TEMP 36.2; O2SAT 97
[2024-01-05] MEDS: Lactated Ringers 1,000 ML 80 ML IV (10:40)
[2024-01-05 10:58] VITALS: BMI 25.2
--- NOTE | 2024-01-05 11:31 | BOWEL_PTH ---
PATIENT: Gema Grace LOC: [facility] U#:[id number] AGE/SX: 73/F ROOM: RE01/05/[address]: Clover Morris : 1950 BED: DIS: 01/05/2024 SPEC #: [id number] RECD: 01/05/24 12:58 STATUS: ARNEL REMustapha #: [id number] LORETTA: 01/05/24 11:[address]: Clover Morris DEPT: Surgical Specimen RECD BY: Zahida Wesley ENTERED: 01/05/24 12:58 SP TYPE: Bowel OTHR DR: Eli Skaggs Tissues: 1 - BIOPSY BOWEL 2 - BIOPSY BOWEL Procedures: GROSS AND MICRO LEVEL 4 Comments: [id number]
[2024-01-05 11:42] VITALS: BP 117/84; PULSE 73; RESP 16; TEMP 36.5; O2SAT 96
--- NOTE | 2024-01-05 12:06 | W.ANESPOSTOP ---
Postoperative Evaluation Date, Time and Location Date Performed: 01/05/24 Time Performed: 12:07 Patient Location: Day Surgery Unit Vital Signs Most Recent Imported Vital Signs: Most Recent Vital Signs Temp Pulse Resp BP Pulse Ox 36.5 C 73 16 117/84 96 01/05/24 11:42 01/05/24 11:42 01/05/24 11:42 01/05/24 11:42 01/05/24 11:42 Pain Score Most Recent Pain Score: Most Recent Pain Score Pain Level 0 01/05/24 11:42 Assessment Mental Status: Awake (Alert & Oriented to Patient Baseline) Airway and Respiratory Function: Patent airway with normal (patient baseline) respiratory exam Cardiovascular Function: Hemodynamically Stable Hydration Status: Adequately Hydrated Nausea & Vomiting: No Nausea or Vomiting Pain: Pt. Denies Any Pain Peripheral Nerve Block: Patient did not receive a nerve block
[2024-01-05 12:15] VITALS: BP 127/65; PULSE 75; RESP 16; TEMP 36; O2SAT 97
== END 2024-01-05 12:27 | disposition home or self-care (01) ==
PROVIDERS: PCP Family Medicine; Visit Provider Surgery
PROC: 0DJD8ZZ Inspection of Lower Intestinal Tract, Via Natural or Artificial Opening Endoscopic (ICD-10-PCS; CPT 45378; principal; 2024-01-05 10:30)
DX: Z12.11 Encounter for screening for malignant neoplasm of colon (principal); I10 Essential (primary) hypertension; D12.4 Benign neoplasm of descending colon; K57.30 Diverticulosis of large intestine without perforation or abscess without bleeding; K64.8 Other hemorrhoids
CPT/HCPCS: 45380; 88305; J2001; J2704

== ENCOUNTER → 2024-01-12 09:17 | Outpatient (BNVA) | payer MEDICARE, SELFPAY | PROVIDERS: PCP Family Medicine; Visit Provider Internal Medicine Cardiovascular Disease | DX: I48.0 Paroxysmal atrial fibrillation (principal) | CPT/HCPCS: 99213 ==

== ENCOUNTER 2024-09-18 10:33 | Outpatient (REF) | payer MEDICARE, SELFPAY ==
[2024-09-18 19:52] LABS: ALT 27 U/L (14-59); AST 28 U/L (15-37); Albumin 3.6 g/dL (3.4-5.0); Alkaline Phosphatase 117 U/L (46-116); Anion Gap 9.9 mmol/L (3-11); BUN 21 mg/dL (7-18); Bilirubin, Total 0.5 mg/dL (0.2-1.0); CO2 25.1 mmol/L (21.0-32.0); CREATININE 0.8 mg/dL (0.55-1.02); Calcium 9.2 mg/dL (8.5-10.1); Chloride 106 mmol/L (98-107); Estimated GFR 76.79 (mL/min/1.73m2); Glucose 103 mg/dL (74-106); Potassium 4.4 mmol/L (3.5-5.1); Sodium 141 mmol/L (136-145); Total Protein 6.8 g/dL (6.4-8.2)
[2024-09-18 20:01] LABS: COMMENT (LAB VIEW ONLY) 280.53 mg/dL; Microalb ug/mg Crea 8.4 ug/mg Cr
== END 2024-09-18 10:34 | disposition home or self-care (01) ==
LOC: NCHCN 10:33
PROVIDERS: PCP Family Medicine; Visit Provider Family Medicine
DX: I10 Essential (primary) hypertension (principal); I48.0 Paroxysmal atrial fibrillation
CPT/HCPCS: 80053; 82043; 82570

== ENCOUNTER → 2024-10-11 08:47 | Outpatient (BNVA) | payer MEDICARE, SELFPAY | PROVIDERS: PCP Family Medicine; Visit Provider Internal Medicine Cardiovascular Disease | DX: I48.0 Paroxysmal atrial fibrillation (principal) | CPT/HCPCS: 99213 ==